=== PATIENT | female | born 1955 | race Caucasian/White ===

== ENCOUNTER 2016-04-24 21:06 | Emergency (ER) | payer SELFPAY ==
--- NOTE | 2016-04-24 21:08 | ED Physician Chart ---
Chief Complaint/HPI - Patient Information Date Seen:: 04/24/16 Time Seen:: 21:07 ED Septic Shock - . Is Septic Shock (SBP<90, OR Lactate>4 mmol\L) present?: No Reassessment (Disposition) - Reassessment Reassessment:: This patient checked and then almost immediately left the hospital. I immediately was walking toward the admitting area and by the time I got there the patient had already left. - Patient Disposition Discharge/Transfer:: left without being seen Time:: 21:19 ED Discharge Plan - Patient Disposition Admit/Discharge/Transfer: PT DISCHARGED HOME
== END 2016-04-24 21:15 | disposition left against medical advice (07) ==
LOC: ER 21:06
DX: Z53.21 Procedure and treatment not carried out due to patient leaving prior to being seen by health care provider (principal)

== ENCOUNTER 2017-12-28 07:33 | Inpatient (IN) | payer MEDICAID ==
[2017-12-28] MEDS ORDERED: Sodium Chloride 0.9% 1,000 ML IV ONE (07:46)
[2017-12-28] MEDS ORDERED: Multivitamin Inj 10 ML, Thiamine HCL 100 MG, Magnesium Sulfate 2 GM, Folic Acid 1 MG in... IV ONE (07:50)
[2017-12-28 08:13] LABS: % BASOPHILS 0.9 % (0.0-2.0); % EOSINOPHILS 0.4 % (0.0-5.0); % LYMPHOCYTES 18.4 % (20.0-50.0); % MONOCYTES 11.5 % (2.0-10.0); % NEUTROPHILS 68.8 % (40.0-80.0); BASOPHILE ABSOLUTE 0.1 Th/cumm (0-0.2); HEMATOCRIT 35.8 % (41.0-60); HEMOGLOBIN 12.6 gm/dL (12-16); LYMPHOCYTE ABSOLUTE 1.2 Th/cmm (1.5-3.0); MEAN CELL VOLUME 97.8 fl (81-100); MEAN CORPUSCULAR HEMOGLOBIN 34.4 pg (27.0-31.0); MEAN CORPUSCULAR HGB CONC 35.2 pg (28.0-36.0); MEAN PLATELET VOLUME 6.9 fl; MONOCYTE ABSOLUTE 0.7 Th/cmm (0.3-1.0); NEUTROPHILE ABSOLUTE 4.3 Th/cmm (1.8-8.0); PLATELET COUNT 296 Th/cmm (150-400); RED BLOOD COUNT 3.66 Mil/cmm (3.80-5.10); RED CELL DISTRIBUTION WIDTH 15.1 % (11.5-20.0); WHITE BLOOD COUNT 6.3 Th/cmm (4.8-10.8)
[2017-12-28 08:19] LABS: URINE SOURCE RANDOM
[2017-12-28 08:26] LABS: URINE BILIRUBIN NEGATIVE (NEGATIVE); URINE BLOOD NEGATIVE (NEGATIVE); URINE GLUCOSE (UA) NEGATIVE (NEGATIVE); URINE KETONE 15 mg/dL (NEGATIVE); URINE LEUKOCYTE ESTERASE NEGATIVE (NEGATIVE); URINE NITRATE NEGATIVE (NEGATIVE); URINE PROTEIN NEGATIVE (NEGATIVE); URINE UROBILINOGEN 0.2 E.U./dL (0.2 - 1.0)
[2017-12-28 08:37] LABS: ACETAMINOPHEN < 10.0 ug/mL (10.0-30.0); ALB/GLOB RATIO 2.1 (1.0-1.8); ALBUMIN 4.1 gm/dL (3.7-5.3); ALKALINE PHOSPHATASE 96 U/L (34-104); AMYLASE SERUM 27 U/L (29-103); ANION GAP 14.1 (7.0-16.0); BILIRUBIN,TOTAL 0.4 mg/dL (0.3-1.0); BUN - UREA NITROGEN 14 mg/dL (7-25); CALCIUM SERUM 8.9 mg/dL (8.6-10.3); CARBON DIOXIDE 23.7 mEq/L (21.0-31.0); CHLORIDE 92 mEq/L (98-107); CHOLESTEROL 181 mg/dL (<200); CREATININE - SERUM 0.5 mg/dL (0.6-1.2); CREATININE KINASE 46 U/L (30-223); GFR AFRICAN-AMERICAN > 60.0 ml/min (>90); GFR NON AFRICAN-AMERICAN > 60.0 ml/min; GLUCOSE 196 mg/dL (70-105); HDL -HIGH DENSITY LIPOPROTEIN 81 mg/dL (23-92); LIPASE 26 U/L (11-82); POTASSIUM SERUM 3.8 mEq/L (3.5-5.1); SGOT 53 U/L (13-39); SGPT/ALT 28 U/L (7-52); SODIUM SERUM 126 mEq/L (136-145); TOTAL PROTEIN,SERUM 6.1 gm/dL (6.0-8.3); TRIGLYCERIDES 401 mg/dL (<150)
[2017-12-28 08:40] LABS: URINE COLOR YELLOW
[2017-12-28 08:41] LABS: URINE CLARITY CLEAR (CLEAR); URINE MICROSCOPIC INDICATED? NO
[2017-12-28 08:44] LABS: SALICYLATES (ASPIRIN) < 25.0 mg/L (30.0-100.0)
[2017-12-28 08:45] LABS: DDIMER QUANT 970 ng/mL (100-400)
--- NOTE | 2017-12-28 08:52 | ED Physician Chart ---
ED Chief Complaint/HPI - Patient Information Date Seen:: 12/28/17 Time Seen:: 07:35 Chief Complaint:: Anxiety History of Present Illness:: onset x 12 hours of anxiousness, nervousness, N/V/D x 3; pt's last ETOH beverage was 12 hours [employer]HO[employer]; pt denies LOC, ALOC, AMS, syncope, NS, trauma, H/As, S/T, neck pain, C/P, SOB, Abd. Pain, A/C, fever, chills, bleeding, or urinary s/ s Allergies:: Allergies Allergy/AdvReac Type Severity Reaction Status Date / Time tetracycline Allergy Verified 12/28/17 07:39 Vitals:: Vital Signs - 8 hr 12/28/17 07:34 Temp 97.4 F HR 131 RR 18 BP 167/69 O2 Sat % 98 Historian:: Patient Review:: Nurse's Note Reviewed ED Review of Systems - Review of Systems General/Constitutional: No fever, No chills, No weight loss, No weakness, No diaphoresis, No edema, No loss of appetite Skin: No skin lesions, No rash, No bruising Head: No headache, No light-headedness Eyes: No loss of vision, No pain, No diplopia ENT: No earache, No nasal drainage, No sore throat, No tinnitus Neck: No neck pain, No swelling, No thyromegaly, No stiffness, No mass noted Cardio Vascular: No chest pain, No palpitations, No PND, No orthopnea, No edema Pulmonary: No SOB, No cough, No sputum, No wheezing GI: Nausea, Vomiting, Diarrhea, No pain, No melena, No hematochezia, No constipation, No hematemesis G/U: No dysuria, No frequency, No hematuria, No nacturia Helix Coil Winder: No vaginal discharge, No abnormal vaginal bleed, No contraction Musculoskeletal: No bone or joint pain, No back pain, No muscle pain Endocrine: No polyuria, No polydipsia Psychiatric: No prior psych history, No depression, No anxiety, No suicidal ideation, No homicidal ideation, No auditory hallucination, No visual hallucination Hematopoietic: No bruising, No lymphadenopathy Allergic/Immuno: No urticaria, No angioedema Neurological: No syncope, No focal symptoms, No weakness, No paresthesia, No headache, No seizure, No dizziness, No confusion, No vertigo ED Past Medical History - Past Medical History Obtainable: Yes Past Medical History: HTN Family History: HTN Social History: Non Smoker, Alcohol, No Drug Use, Single Surgical History: None Psychiatricy History: None Medication: Reviewed Family Medical History - Family Member Mother History Unknown: Yes ED Physical Exam - Physical Examination General/Constitutional: Awake, Well-developed, well-nourished, Alert, No distress, GCS 15, Non-toxic appearing, Ambulatory Head: Atraumatic Eyes: Lids, conjuctiva normal, PERRL, EOMI Skin: Nl inspection, No rash, No skin lesions, No ecchymosis, Well hydrated, No lymphadenopathy ENMT: External ears, nose nl, Nasal exam nl, Lips, teeth, gums nl Neck: Nontender, Full ROM w/o pain, No JVD, No nuchal rigidity, No bruit, No mass, No stridor Respiratory: Nl effort/Exclusion, Clear to Auscultation, No Wheeze/Rhonchi/Rales Cardio Vascular: RRR, No murmur, gallop, rubs, NL S1 S2 GI: No tenderness/rebounding/guarding, No organomegaly, No hernia, Normal BS's, Nondistended, No mass/bruits, No McBurney tenderness : No CVA tenderness Extremities: No tenderness or effusion, Full ROM, normal strength in all extremities, No edema, Normal digits & nails Neuro/Psych: Alert/oriented, DTR's symmetric, Normal sensory exam, Normal motor strength, Judgement/insight normal, Mood normal, Normal gait, No focal deficits Misc: Normal back, No paraspinal tenderness ED Labs/Radiology/EKG Results - Lab Results Results: Laboratory Tests 12/28/17 12/28/17 12/28/17 06:00 07:55 07:55 WBC 6.3 RBC 3.66 L Hgb 12.6 Hct 35.8 L MCV 97.8 MCH 34.4 H MCHC Differential 35.2 RDW 15.1 Plt Count 296 MPV 6.9 Neutrophils % 68.8 Lymphocytes % 18.4 L Monocytes % 11.5 H Eosinophils % 0.4 Basophils % 0.9 D-Dimer 970 H Sodium 126 L Potassium 3.8 Chloride 92 L Carbon Dioxide 23.7 Anion Gap 14.1 BUN 14 Creatinine 0.5 L Est GFR ( Amer) > 60.0 Est GFR (Non-Af Amer) > 60.0 BUN/Creatinine Ratio 28.0 Glucose 196 H Calcium 8.9 Total Bilirubin 0.4 AST 53 H ALT 28 Alkaline Phosphatase 96 Creatine Kinase 46 Troponin I B-Natriuretic Peptide Total Protein 6.1 Albumin 4.1 Globulin 2.0 Albumin/Globulin Ratio 2.1 H Triglycerides 401 H Cholesterol 181 LDL Cholesterol Direct 36 L HDL Cholesterol 81 Amylase 27 L Lipase 26 Urine Source Urine Color Urine Clarity Urine pH Ur Specific [place] Urine Protein Urine Glucose (UA) Urine Ketones Urine Blood Urine Nitrate Urine Bilirubin Urine Urobilinogen Ur Leukocyte Esterase Urine Test NEGATIVE Salicylates < 25.0 L Acetaminophen < 10.0 L Ethyl Alcohol 12/28/17 12/28/17 12/28/17 07:55 07:55 07:55 WBC RBC Hgb Hct MCV MCH MCHC Differential RDW Plt Count MPV Neutrophils % Lymphocytes % Monocytes % Eosinophils % Basophils % D-Dimer Sodium Potassium Chloride Carbon Dioxide Anion Gap BUN Creatinine Est GFR ( Amer) Est GFR (Non-Af Amer) BUN/Creatinine Ratio Glucose Calcium Total Bilirubin AST ALT Alkaline Phosphatase Creatine Kinase Troponin I 0.01 B-Natriuretic Peptide 21.4 Total Protein Albumin Globulin Albumin/Globulin Ratio Triglycerides Cholesterol LDL Cholesterol Direct HDL Cholesterol Amylase Lipase Urine Source Urine Color Urine Clarity Urine pH Ur Specific [place] Urine Protein Urine Glucose (UA) Urine Ketones Urine Blood Urine Nitrate Urine Bilirubin Urine Urobilinogen Ur Leukocyte Esterase Urine Test Salicylates Acetaminophen Ethyl Alcohol < 10 12/28/17 08:10 WBC RBC Hgb Hct MCV MCH MCHC Differential RDW Plt Count MPV Neutrophils % Lymphocytes % Monocytes % Eosinophils % Basophils % D-Dimer Sodium Potassium Chloride Carbon Dioxide Anion Gap BUN Creatinine Est GFR ( Amer) Est GFR (Non-Af Amer) BUN/Creatinine Ratio Glucose Calcium Total Bilirubin AST ALT Alkaline Phosphatase Creatine Kinase Troponin I B-Natriuretic Peptide Total Protein Albumin Globulin Albumin/Globulin Ratio Triglycerides Cholesterol LDL Cholesterol Direct HDL Cholesterol Amylase Lipase Urine Source RANDOM Urine Color YELLOW Urine Clarity CLEAR Urine pH 6.0 Ur Specific [place] 1.020 Urine Protein NEGATIVE Urine Glucose (UA) NEGATIVE Urine Ketones 15 H Urine Blood NEGATIVE Urine Nitrate NEGATIVE Urine Bilirubin NEGATIVE Urine Urobilinogen 0.2 Ur Leukocyte Esterase NEGATIVE Urine Test Salicylates Acetaminophen Ethyl Alcohol Comments:: Reviewed - EKG Interpretations EKG Time:: 07:50 Rate & Rhythm: 100; ST Comments:: non-specific st-t changes ED Septic Shock - . Is Septic Shock (SBP<90, OR Lactate>4 mmol\L) present?: No - <6hrs of presentation: Vital Signs: Vital Signs - 8 hr 12/28/17 07:34 Temp 97.4 F HR 131 RR 18 BP 167/69 O2 Sat % 98 ED Reassessment (Disposition) - Reassessment Reassessment Condition:: Improved - Diagnosis Diagnosis:: Dx: N/V/D; AGE; Alcoholism; Anxiety; Hyponatremia; Alcohol Withdrawal; Dehydration; Tachycardia; Anemia - Aftercare/Follow up Instructions Aftercare/Follow-Up Instructions:: Counseled pt regarding lab results/diagnosis & need follow up, Counseled pt & family regarding lab results/diagnosis & need follow up - Patient Disposition Discharge/Transfer:: Acute Care w/in this hosp Accepting Physician:: Dr. William Huang Time Called:: 929 Time Responded:: 09:30 Admitted to:: ICU Spoke to:: Dr. William Huang Admitting Medical Physician:: Dr. William Smith Condition at Disposition:: Stable, Improved
[2017-12-28 09:42] LABS: AMPHETAMINE URINE NEGATIVE (NEGATIVE); BARBITURATES URINE NEGATIVE (NEGATIVE); BENZODIAZEPINES QUAL URINE NEGATIVE (NEGATIVE); CANNABINOID THC POSITIVE (NEGATIVE); COCAINE METABOLITE QUAL URINE NEGATIVE (NEGATIVE); METHADONE URINE NEGATIVE (NEGATIVE); METHAMPHETAMINES QUAL URINE NEGATIVE (NEGATIVE); OPIATES (MORPHINE) QUAL. URINE NEGATIVE (NEGATIVE); PHENCYCLIDINE (PCP) URINE NEGATIVE (NEGATIVE); TRICYCLICS (TCA) QUAL. URINE NEGATIVE (NEGATIVE)
[2017-12-28 10:00] LABS: PROTHROMBIN TIME (TEST) 8.9 SECONDS (9.5-11.5)
[2017-12-28 10:34] LABS: INR < 0.90 (0.5-1.4)
[2017-12-28] MEDS ORDERED: D5-0.9%NS 1,000 ML IV SCH ×2 (11:00→11:09)
[2017-12-28] MEDS: D5-0.9%NS 1,000 ML IV SCH (13:31)
[2017-12-28] MEDS ORDERED: Pneumococcal Vaccine 0.5 mL Vial IM ONE (15:11)
--- NOTE | 2017-12-28 16:35 | Consultation ---
DATE OF CONSULTATION: 12/28/2017 REASON FOR CONSULTATION: Hyponatremia. HISTORY OF PRESENT ILLNESS: This is a 62-year-old female with past medical history of alcohol abuse, who came in because of severe anxiety. A few hours prior to admission, the patient had been drinking binge with tequila. She eventually passed out. She woke up shaking, associated with severe tachycardia and diaphoresis. She was then brought to the Emergency Room. Her pulse was 131 with a BP of 167/69. Urine was positive for cannabinoids. Her sodium level was 126. She had no nausea and vomiting, diarrhea; however, she has poor oral intake due to her alcohol intoxication. PAST MEDICAL HISTORY: 1. Drug abuse (alcohol and cannabinoids). 2. Anxiety/depression. 3. Neuropathy. PAST SURGICAL HISTORY: 1. Status post ablation due to arrhythmia. 2. Status post appendectomy. CURRENT MEDICATIONS: She is currently on atenolol, chlordiazepoxide, multivitamins and diltiazem. ALLERGIES: Allergic to tetracycline. SOCIAL HISTORY: She does not have any history of tobacco use. However, she has a history of alcohol abuse as well as use of cannabinoids. She is currently unemployed. FAMILY HISTORY: Sister had a history of breast cancer. REVIEW OF SYSTEMS: CONSTITUTIONAL: She did complain of some weakness. Appetite had been very poor. No fever or chills. HEENT: No mention of headaches nor dizziness. CARDIORESPIRATORY: No chest pain, palpitations, cough, shortness of breath. However, she was diaphoretic. GASTROINTESTINAL: She has no nausea and vomiting, abdominal pain or cramping, hematemesis, melena, hematochezia nor diarrhea. ENDOCRINE: No history of diabetes, thyroid abnormalities nor dyslipidemia. GENITOURINARY: No history of kidney failure, no dysuria nor hematuria. MUSCULOSKELETAL: Multiple joint arthralgias. NEUROPSYCH: No syncopal episode nor seizure activity. PHYSICAL EXAMINATION: GENERAL: The patient is alert, anxious, cachectic. VITAL SIGNS: Blood pressure is 153/82, pulse 95, temperature 99.7 degrees. SKIN: Poor turgor, warm, no rash nor jaundice appreciated. HEENT: Head, normocephalic, atraumatic. Eyes, extraocular muscles intact. Pupils equal, round, reactive to light and accommodates. Anicteric sclerae. Pale conjunctivae. Nose, midline nasal septum. Mouth; dry mucosa, poor dentition. NECK: Supple, no adenopathy, no thyromegaly, no bruits. Trachea palpated in the midline. CHEST AND CARDIOVASCULAR: Tachycardic, S1 and S2. No rub, murmur nor gallop appreciated. Point of maximal impulse, fifth intercostal space, left midclavicular line. No abdominal or femoral bruits appreciated. LUNGS: Equal expansion. No use of accessory muscles. No supraclavicular retractions. Decreased breath sounds, but clear to auscultation without any wheeze. BREASTS: Symmetrical without any discharge. ABDOMEN: Flat, soft, positive for bowel sounds. No bruits either diastolic or systolic. RECTAL: The patient refused. GENITOURINARY: Normal appearing female genitalia. MUSCULOSKELETAL: No effusions present in her joints with adequate range of motion. EXTREMITIES: No evidence of edema, cyanosis nor clubbing with palpable femoral, popliteal and dorsalis pedis pulses. She is positive for asterixis. NEUROLOGIC: The patient is alert, verbal. Motor is 5/5. Cranial nerves 2-12 intact. Sensory intact. LABORATORY DATA: Labs did reveal a white count of 6.3, hemoglobin 12.6, hematocrit 35.8, platelets 296, polys 68.8%. Sodium 126, potassium 3.8, chloride 92, bicarb 23, BUN 14, creatinine 0.5, glucose 196, calcium 8.9. Urine for ketones 15. IMPRESSION: 1. Hyponatremia secondary to decreased oral intake based on history of alcohol intoxication and the patient was not able to replenish her sodium loss. Exam revealed poor skin turgor with dry oral mucosa and a very concentrated urine. Thus, there is a possibility of increased sodium loss as compared to free water loss. 2. Delirium tremens secondary to acute alcohol withdrawal. 3. Sinus tachycardia secondary to cannabinoids, with also underlying history of arrhythmia. 4. Malnutrition. 5. Anxiety/depression. 6. Neuropathy. 7. Essential hypertension. PLAN: 1. Agree with IV fluids. 2. Beta blockers. 3. Banana bag. 4. Urine sodium. 5. Follow up electrolytes, serum osmolarity, lactic acid and TSH. Thank you, Dr. Huang, for this consult. We will follow the patient closely with you. JOB# [id number]
[2017-12-28] MEDS: Multivitamin Inj 10 ML, Thiamine HCL 100 MG, Magnesium Sulfate 2 GM, Folic Acid 1 MG in... IV SCH (16:52)
--- NOTE | 2017-12-28 16:59 | History & Physical ---
ADMIT DATE: 12/28/2017 CHIEF COMPLAINT: Anxiety, nervousness, nausea, vomiting and diarrhea for last 3-4 days. HISTORY OF PRESENT ILLNESS: Recently, the patient went with the similar symptoms at [facility] on 12/23/2017. Same night, she was discharged to home. Although she has some tachycardia. She was discharged home. At the time of admission, she was found to have alcohol intoxication. Now, she presented with anxiety, nervousness, nausea, vomiting, diarrhea for last one day. She stated that she took her alcohol 12 hours prior to the presentation to the ER. The patient denies any loss of consciousness. The patient denies any fever; however, the patient was found to have tachycardia and high blood pressure. She denied any diagnosis of hypertension before. The patient was suspected to have delirium tremens as the patient's alcohol level less than 10, had some few symptoms of above said diagnoses. The patient was admitted to the ICU, started on IV fluid. ALLERGIES: NKDA. PAST MEDICAL HISTORY: Denies any significant past medical history beside alcohol abuse. FAMILY HISTORY: Hypertension. SOCIAL HISTORY: The patient denies any smoking or drug use. The patient is single and has history of alcohol abuse. PAST SURGICAL HISTORY: None. PSYCHIATRIC HISTORY: The patient has anxiety disorder and taking some medications for that. MEDICATIONS: As per medication reconciliation sheet. REVIEW OF SYSTEMS: CONSTITUTIONAL: The patient denies any fever or chills. The patient denies any diaphoresis. The patient denies any loss of appetite. The patient complains of generalized weakness. HEAD, EYES, EARS, NOSE, AND THROAT: The patient denies any headache, ear pain, eye discharge or sore throat or congestion. RESPIRATORY: The patient denies any cough or shortness of breath. CVS: The patient denies any chest pain or palpitation. No leg swelling. GASTROINTESTINAL: The patient denies any complains of nausea, vomiting and diarrhea for last one day. The patient denies any abdominal pain. GENITOURINARY: The patient denies any dysuria or frequency or hematuria. GYNECOLOGIC: The patient denies any vaginal discharge ____ vaginal bleed. MUSCULOSKELETAL: The patient denies any abnormal joint pain or swelling. PSYCHIATRIC: The patient has anxiety and tremors. She stated that when she takes alcohol she does not get any tremors, but off alcohol she get tremor. HEMATOPOIETIC: Denies any lymphadenopathy, easy bruising or bleeding tendency. NEUROLOGIC: The patient denies headache, dizziness or focal weakness or seizures. PHYSICAL EXAMINATION: VITAL SIGNS: Shows temperature is 97.6 degrees Fahrenheit, pulse is 103, and respiration is 15, blood pressure 164/93 and oxygen 95%. GENERAL: The patient is comfortable, lying in the bed. LUNGS: Cachectic, not in acute distress. HEAD, EYES, EARS, NOSE, AND THROAT: Head is normocephalic, atraumatic. Oral cavity moist, pink tongue. Eyes: No pallor, no icterus. PERRLA, EOMI. NECK: Supple, no JVD, no carotid bruit. Trachea midline. CHEST: Bilateral vesicular sounds, no crackles or wheezing. CARDIOVASCULAR: S1, S2 within normal limits. Regular rhythm. No murmur, no gallop. ABDOMEN: Soft, nontender, nondistended. Bowel sounds present. EXTREMITIES: No cyanosis, no clubbing, no edema. LABORATORY DATA: Urinalysis shows negative protein and glucose, nitrite negative. Ketone was 15. Urine tox screen was positive for cannabinoids. Ethyl alcohol level less than 10. Urine methadone is negative. D-dimer is 970. PT is 8.9 and INR is less than 0.90. Sodium is 126, potassium 3.8, chloride 92, bicarbonate is 24, BUN is 14, creatinine 0.5, glucose is 196, AST 53, ALT 28, alkaline phosphatase is 96, total bilirubin 0.4 and triglycerides 401, LDL 36, HDL 81, amylase 27. Cholesterol is 181. BNP is 21.4. Troponin 0.01. IMPRESSION: 1. Nausea, vomiting, diarrhea, maybe symptoms of gastroenteritis versus may have alcohol withdrawal. Delirium tremens. 2. Suspect delirium tremens. 3. Hypertension, which seems new. 4. Tachycardia. 5. Anxiety disorder. 6. Hyponatremia. RECOMMENDATION AND PLAN: We will continue IV fluids over the D5 normal saline with a banana bag, thiamine 100 mg IV ordered, Librium 25 mg p.o. every 8 hourly. PLAN: Continue IV fluids over the D5 normal saline with a banana bag, thiamine 100 mg given in the ER, multivitamin and the banana bag, Librium 25 mg p.o. 4 times a day. Depending on the response, will take further decision. Meanwhile, the patient was already started on atenolol. Continue her home medication. Monitor the patient in ICU for 24 hours. If she does well, will transfer the patient back to the telemetry. Depending on the patient's clinical status tomorrow. This history and physical was done on behalf of Dr. Swanson who requested to take care of the patient in the hospital. Consultants called Dr. Jose Huang for tachycardia and hypertension, and Dr. Burns for hyponatremia. JOB# [id number] MTDD
[2017-12-28 17:03] VITALS: BP 168/93
[2017-12-28] MEDS: Diltiazem 30 mg Tab PO SCH (17:41)
[2017-12-28] MEDS ORDERED: Multivitamin Inj 10 ML, Thiamine HCL 100 MG, Magnesium Sulfate 2 GM, Folic Acid 1 MG in... IV SCH ×2 (21:00)
[2017-12-29] MEDS: Diltiazem 30 mg Tab PO SCH ×4 (00:06→17:26)
[2017-12-29 04:50] LABS: % BASOPHILS 0.4 % (0.0-2.0); % EOSINOPHILS 0.5 % (0.0-5.0); % MONOCYTES 13.1 % (2.0-10.0); HEMOGLOBIN 14.2 gm/dL (12-16); LYMPHOCYTE ABSOLUTE 2.1 Th/cmm (1.5-3.0); MEAN CELL VOLUME 98.3 fl (81-100); MEAN CORPUSCULAR HEMOGLOBIN 33.3 pg (27.0-31.0); MEAN CORPUSCULAR HGB CONC 33.9 pg (28.0-36.0); MEAN PLATELET VOLUME 6.8 fl; NEUTROPHILE ABSOLUTE 4.4 Th/cmm (1.8-8.0); PLATELET COUNT 292 Th/cmm (150-400); RED BLOOD COUNT 4.25 Mil/cmm (3.80-5.10); RED CELL DISTRIBUTION WIDTH 14.8 % (11.5-20.0); WHITE BLOOD COUNT 7.5 Th/cmm (4.8-10.8)
[2017-12-29 05:22] LABS: HEMATOCRIT 41.8 % (41.0-60)
[2017-12-29 05:42] LABS: ANION GAP 11.8 (7.0-16.0); BUN - UREA NITROGEN 11 mg/dL (7-25); CALCIUM SERUM 9.1 mg/dL (8.6-10.3); CARBON DIOXIDE 24.9 mEq/L (21.0-31.0); CHLORIDE 104 mEq/L (98-107); CREATININE - SERUM 0.6 mg/dL (0.6-1.2); GFR AFRICAN-AMERICAN > 60.0 ml/min (>90); GFR NON AFRICAN-AMERICAN > 60.0 ml/min; GLUCOSE 133 mg/dL (70-105); MAGNESIUM 2.7 mg/dL (1.9-2.7); PHOSPHOROUS 3.4 mg/dL (2.5-5.0); POTASSIUM SERUM 3.7 mEq/L (3.5-5.1); SODIUM SERUM 137 mEq/L (136-145); URIC ACID 4.4 mg/dL (2.3-6.6)
--- NOTE | 2017-12-29 12:52 | Consultation ---
DATE OF CONSULTATION: 12/29/2017 IDENTIFYING INFORMATION: The patient is a 62-year-old female. HISTORY OF PRESENT ILLNESS: The patient was admitted to ICU because she was in delirium tremens. She was detoxing from alcohol. Blood alcohol level was high. She was intoxicated when she was admitted here to ICU. The patient is currently alert. She knows she is in the hospital. She admits to feeling depressed. She started crying when talked about her who left her some 8 years ago for another woman. She reports that she has been depressed since age 50 when she started having menopausal symptoms, has been on Celexa since seen by her medical doctor. She reports that she started using alcohol to numb her feelings 7 years ago. She also uses marijuana and she wanted to get off all of the medications. She is also on Neurontin by her primary care physician. The patient report no additional visual hallucinations. No paranoia. Denies any intent to harm herself or anybody. She wants to go to the [facility] when she is stable, so she can do residential treatment. PAST PSYCHIATRIC HISTORY: Depression, starting at age 50 after menopause. No prior suicide attempt. She has been treated for alcohol addiction twice. She was treated 3 times before. Denies having any manic symptoms. MEDICAL HISTORY: Deferred to the medical doctor. MEDICATOINS: She is on Celexa, Neurontin. FAMILY AND SOCIAL HISTORY: The patient was for 8 years, was to 27 years. She has 1 girl 25 years of age. She use alcohol, marijuana as described before. Father was addicted to prescription medication. No family history of suicide. She is currently not working. MENTAL STATUS EXAMINATION: The patient is appropriately dressed, not very well groomed. She was alert, oriented to place, person, but not to time. She is not sure of the date, but she knew who is President of [facility]. Her long-term is good for age, date of . Recent memory was events after coming here, what she ate breakfast. Her insight about her illness is fair. Judgment ____. DIAGNOSTIC IMPRESSION: AXIS I: Chronic alcohol dependence, major depression, recurrent, severe with no psychosis. MEDICAL DIAGNOSES: As per medical doctor recommend to continue medications. The patient may need to on naltrexone or Campral when she is detox. The patient will be going to residential treatment; however, her symptoms of depression remaining, we may have to adjust her medication. Thank you very much for allowing me to participate in the care of this most interesting lady. JOB# [id number]
--- NOTE | 2017-12-29 13:29 | Cardiology ---
12/28/[address] William Huang. M-MODE ECHOCARDIOGRAM: Mitral valve, anterior leaflet of mitral valve shows normal excursion, EF velocity. Posterior leaflet of the mitral valve shows normal excursion. Left ventricular posterior wall shows normal thickness, excursion. Interventricular septum showed normal thickness, excursion. Ejection fraction 62%. Left atrium normal. Aortic root shows normal dimension, normal excursion of aortic leaflets. CONCLUSION: Normal M-Mode echo, ejection fraction 62%. 2D ECHO: Long axis view showed normal sized left ventricle with normal wall motion, mitral valve shows normal excursion. Left atrium normal. Aortic root showed normal dimension, normal excursion of aortic leaflets. Short axis view of mitral valve normal. Short axis view of aortic valve normal. Apical four chamber view showed normal sized left ventricle, left atrium, right ventricle, right atrium, tricuspid and mitral valve. Ejection fraction 62%. CONCLUSION: Normal 2D echo, ejection fraction 62%. Doppler study shows mild mitral regurgitation, mild tricuspid regurgitation, right ventricular systolic pressure 38 mmHg. [facility]# [id number]
--- NOTE | 2017-12-29 14:16 | General Progress Note ---
Subjective - Review of Systems Service Date: 12/29/17 Subjective: alert, feels better, less anxious, no tremors Objective - Results Result Diagrams: 12/29/17 04:45 12/29/17 04:45 Recent Labs: Laboratory Last Values WBC 7.5 Th/cmm (4.8-10.8) 12/29/17 04:45 RBC 4.25 Mil/cmm (3.80-5.10) 12/29/17 04:45 Hgb 14.2 gm/dL (12-16) 12/29/17 04:45 Hct 41.8 % (41.0-60) D 12/29/17 04:45 MCV 98.3 fl (81-100) 12/29/17 04:45 MCH 33.3 pg (27.0-31.0) H 12/29/17 04:45 MCHC Differential 33.9 pg (28.0-36.0) 12/29/17 04:45 RDW 14.8 % (11.5-20.0) 12/29/17 04:45 Plt Count 292 Th/cmm (150-400) 12/29/17 04:45 MPV 6.8 fl 12/29/17 04:45 Neutrophils % 58.0 % (40.0-80.0) 12/29/17 04:45 Lymphocytes % 28.0 % (20.0-50.0) 12/29/17 04:45 Monocytes % 13.1 % (2.0-10.0) H 12/29/17 04:45 Eosinophils % 0.5 % (0.0-5.0) 12/29/17 04:45 Basophils % 0.4 % (0.0-2.0) 12/29/17 04:45 PT 8.9 SECONDS (9.5-11.5) L 12/28/17 09:35 INR < 0.90 (0.5-1.4) 12/28/17 09:35 D-Dimer 970 ng/mL (100-400) H 12/28/17 07:55 Sodium 137 mEq/L (136-145) 12/29/17 04:45 Potassium 3.7 mEq/L (3.5-5.1) 12/29/17 04:45 Chloride 104 mEq/L (98-107) 12/29/17 04:45 Carbon Dioxide 24.9 mEq/L (21.0-31.0) 12/29/17 04:45 Anion Gap 11.8 (7.0-16.0) 12/29/17 04:45 BUN 11 mg/dL (7-25) 12/29/17 04:45 Creatinine 0.6 mg/dL (0.6-1.2) 12/29/17 04:45 Est GFR ( Amer) > 60.0 ml/min (>90) 12/29/17 04:45 Est GFR (Non-Af Amer) > 60.0 ml/min 12/29/17 04:45 BUN/Creatinine Ratio 18.3 12/29/17 04:45 Glucose 133 mg/dL (70-105) H 12/29/17 04:45 Uric Acid 4.4 mg/dL (2.3-6.6) 12/29/17 04:45 Calcium 9.1 mg/dL (8.6-10.3) 12/29/17 04:45 Phosphorus 3.4 mg/dL (2.5-5.0) 12/29/17 04:45 Magnesium 2.7 mg/dL (1.9-2.7) 12/29/17 04:45 Total Bilirubin 0.4 mg/dL (0.3-1.0) 12/28/17 07:55 AST 53 U/L (13-39) H 12/28/17 07:55 ALT 28 U/L (7-52) 12/28/17 07:55 Alkaline Phosphatase 96 U/L (34-104) 12/28/17 07:55 Creatine Kinase 46 U/L (30-223) 12/28/17 07:55 Troponin I 0.01 ng/mL (0.01-0.05) 12/28/17 07:55 B-Natriuretic Peptide 21.4 pg/mL (5.0-100.0) 12/28/17 07:55 Total Protein 6.1 gm/dL (6.0-8.3) 12/28/17 07:55 Albumin 4.1 gm/dL (3.7-5.3) 12/28/17 07:55 Globulin 2.0 gm/dL 12/28/17 07:55 Albumin/Globulin Ratio 2.1 (1.0-1.8) H 12/28/17 07:55 Triglycerides 401 mg/dL (<150) H 12/28/17 07:55 Cholesterol 181 mg/dL (<200) 12/28/17 07:55 LDL Cholesterol Direct 36 mg/dL (75-193) L 12/28/17 07:55 HDL Cholesterol 81 mg/dL (23-92) 12/28/17 07:55 Amylase 27 U/L (29-103) L 12/28/17 07:55 Lipase 26 U/L (11-82) 12/28/17 07:55 TSH 2.68 uIU/ml (0.34-5.60) 12/29/17 04:45 Urine Source RANDOM 12/28/17 08:10 Urine Color YELLOW 12/28/17 08:10 Urine Clarity CLEAR (CLEAR) 12/28/17 08:10 Urine pH 6.0 (4.6 - 8.0) 12/28/17 08:10 Ur Specific [place] 1.020 (1.005-1.030) 12/28/17 08:10 Urine Protein NEGATIVE mg/dL (NEGATIVE) 12/28/17 08:10 Urine Glucose (UA) NEGATIVE mg/dL (NEGATIVE) 12/28/17 08:10 Urine Ketones 15 mg/dL (NEGATIVE) H 12/28/17 08:10 Urine Blood NEGATIVE (NEGATIVE) 12/28/17 08:10 Urine Nitrate NEGATIVE (NEGATIVE) 12/28/17 08:10 Urine Bilirubin NEGATIVE (NEGATIVE) 12/28/17 08:10 Urine Urobilinogen 0.2 E.U./dL (0.2 - 1.0) 12/28/17 08:10 Ur Leukocyte Esterase NEGATIVE (NEGATIVE) 12/28/17 08:10 Urine Test NEGATIVE 12/28/17 06:00 Salicylates < 25.0 mg/L (30.0-100.0) L 12/28/17 07:55 Urine Opiates Screen NEGATIVE (NEGATIVE) 12/28/17 06:00 Urine Methadone Screen NEGATIVE (NEGATIVE) 12/28/17 06:00 Acetaminophen < 10.0 ug/mL (10.0-30.0) L 12/28/17 07:55 Ur Barbiturates Screen NEGATIVE (NEGATIVE) 12/28/17 06:00 Ur Tricyclics Screen NEGATIVE (NEGATIVE) 12/28/17 06:00 Ur Phencyclidine Scrn NEGATIVE (NEGATIVE) 12/28/17 06:00 Amphetamines Screen NEGATIVE (NEGATIVE) 12/28/17 06:00 U Methamphetamines Scrn NEGATIVE (NEGATIVE) 12/28/17 06:00 U Benzodiazepines Scrn NEGATIVE (NEGATIVE) 12/28/17 06:00 U Cocaine Metab Screen NEGATIVE (NEGATIVE) 12/28/17 06:00 U Cannabinoids Screen POSITIVE (NEGATIVE) H 12/28/17 06:00 Ethyl Alcohol < 10 mg/dL (0-10) 12/28/17 07:55 - Physical Exam Vitals and I&O: Vital Signs Temp 98.3 F 12/29/17 11:00 Pulse 78 12/29/17 11:42 Resp 21 12/29/17 11:00 BP 123/76 12/29/17 11:00 Pulse Ox 97 12/29/17 11:00 Intake & Output 12/28/17 12/29/17 12/29/17 18:59 06:59 18:59 Intake Total 868 1115.2 Output Total 1800 1400 Balance -932 -284.8 Weight (lbs) 40.823 kg 37.24 kg Intake: Intake, IV Amount 268 1015.2 D5-0.9%Ns 1,000 ml @ 80 268 0 mls/hr IV .[id number] ON LICENSE OF [facility] Rx #:[id number] Multivitamin Inj 10 ml 1015.2 Thiamine HCL 100 mg Magnesium Sulfate 2 gm Folic Acid 1 mg In Sodium Chloride 0.9% 1,000 ml @ 80 mls/hr IV Q24H ON LICENSE OF [facility] Rx #:[id number] Oral 600 100 Output: Urine 1800 1400 Other: # Voids 4 Stool Characteristics Soft Formed Brown Weight Source Bedscale Bedscale Active Medications: Current Medications Atenolol (Tenormin) 25 mg PO DAILY ON LICENSE OF [facility] Stop: 02/27/18 08:59 Last Admin: 12/29/17 08:23 Dose: 25 mg Chlordiazepoxide (Librium) 25 mg PO TID ON LICENSE OF [facility]; Protocol Stop: 02/26/18 15:52 Last Admin: 12/29/17 13:22 Dose: 25 mg Citalopram Hydrobromide (Celexa) 20 mg PO DAILY ON LICENSE OF [facility]; Protocol Stop: 02/27/18 11:59 Last Admin: 12/29/17 11:41 Dose: 20 mg Diltiazem HCl (Cardizem) 60 mg PO Q6HR ON LICENSE OF [facility] Stop: 02/26/18 17:59 Last Admin: 12/29/17 11:42 Dose: Not Given Gabapentin (Neurontin) 300 mg PO DAILY ON LICENSE OF [facility] Stop: 02/27/18 08:59 Last Admin: 12/29/17 08:23 Dose: 300 mg Multivitamins/Minerals 10 ml/Thiamine HCl 100 mg/ Magnesium Sulfate 2 gm/ Folic Acid 1 mg / Sodium Chloride 1,015.2 mls @ 80 mls/hr IV Q24H [facility] Stop: 02/26/18 15:59 Last Infusion: 12/29/17 05:30 Dose: Infused Dextrose/Sodium Chloride (D5-0.9%Ns) 1,000 mls @ 80 mls/hr IV .[id number] ON LICENSE OF [facility] Stop: 02/26/18 10:59 Last Infusion: 12/29/17 05:52 Dose: 80 mls/hr Temazepam (Restoril) 15 mg PO HS PRN; Protocol PRN Reason: Insomnia Stop: 02/26/18 15:05 Last Admin: 12/28/17 21:33 Dose: 15 mg General: Alert, Oriented x3, No acute distress HEENT: Atraumatic, PERRLA, Mucous membr. moist/pink Neck: Supple, +2 carotid pulse wo bruit Cardiovascular: Regular rate, Normal S1, Normal S2 Abdomen: Bowel sounds, Soft Extremities: no Edema Neurological: Sensation intact Skin: no Rash Psych/Mental Status: Mood NL Assessment/Plan - Assessment Assessment: Hyponatremia DT'S Tachy resolved Malnutrition Anxiety/Depression Neuropathy Ess Htn Drug abuse ( alcohol/Cannabinoids) - Plan Plan: Lab - Result Diagrams 12/29/17 04:45 12/29/17 04:45 Current Medications Atenolol (Tenormin) 25 mg PO DAILY ON LICENSE OF [facility] Stop: 02/27/18 08:59 Last Admin: 12/29/17 08:23 Dose: 25 mg Chlordiazepoxide (Librium) 25 mg PO TID ON LICENSE OF [facility]; Protocol Stop: 02/26/18 15:52 Last Admin: 12/29/17 13:22 Dose: 25 mg Citalopram Hydrobromide (Celexa) 20 mg PO DAILY ON LICENSE OF [facility]; Protocol Stop: 02/27/18 11:59 Last Admin: 12/29/17 11:41 Dose: 20 mg Diltiazem HCl (Cardizem) 60 mg PO Q6HR ON LICENSE OF [facility] Stop: 02/26/18 17:59 Last Admin: 12/29/17 11:42 Dose: Not Given Gabapentin (Neurontin) 300 mg PO DAILY ON LICENSE OF [facility] Stop: 02/27/18 08:59 Last Admin: 12/29/17 08:23 Dose: 300 mg Multivitamins/Minerals 10 ml/Thiamine HCl 100 mg/ Magnesium Sulfate 2 gm/ Folic Acid 1 mg / Sodium Chloride 1,015.2 mls @ 80 mls/hr IV Q24H ON LICENSE OF [facility] Stop: 02/26/18 15:59 Last Infusion: 12/29/17 05:30 Dose: Infused Dextrose/Sodium Chloride (D5-0.9%Ns) 1,000 mls @ 80 mls/hr IV .[id number] ON LICENSE OF [facility] Stop: 02/26/18 10:59 Last Infusion: 12/29/17 05:52 Dose: 80 mls/hr Temazepam (Restoril) 15 mg PO HS PRN; Protocol PRN Reason: Insomnia Stop: 02/26/18 15:05 Last Admin: 12/28/17 21:33 Dose: 15 mg Lab - Result Diagrams 12/29/17 04:45 12/29/17 04:45 Na up to 137 continue IVF monitor electrolytes no more tremors
[2017-12-29] MEDS: Multivitamin Inj 10 ML, Thiamine HCL 100 MG, Magnesium Sulfate 2 GM, Folic Acid 1 MG in... IV SCH (16:45)
--- NOTE | 2017-12-29 23:44 | Infectious Disease Prog Note ---
Infectious Disease Subjective - Review of Systems Service Date: 12/29/17 Subjective: Doing better, no tachycardia, no nausea. Infectious Disease Objective - Results Result Diagrams: 12/29/17 04:45 12/29/17 04:45 Recent Labs: Laboratory Last Values WBC 7.5 Th/cmm (4.8-10.8) 12/29/17 04:45 RBC 4.25 Mil/cmm (3.80-5.10) 12/29/17 04:45 Hgb 14.2 gm/dL (12-16) 12/29/17 04:45 Hct 41.8 % (41.0-60) D 12/29/17 04:45 MCV 98.3 fl (81-100) 12/29/17 04:45 MCH 33.3 pg (27.0-31.0) H 12/29/17 04:45 MCHC Differential 33.9 pg (28.0-36.0) 12/29/17 04:45 RDW 14.8 % (11.5-20.0) 12/29/17 04:45 Plt Count 292 Th/cmm (150-400) 12/29/17 04:45 MPV 6.8 fl 12/29/17 04:45 Neutrophils % 58.0 % (40.0-80.0) 12/29/17 04:45 Lymphocytes % 28.0 % (20.0-50.0) 12/29/17 04:45 Monocytes % 13.1 % (2.0-10.0) H 12/29/17 04:45 Eosinophils % 0.5 % (0.0-5.0) 12/29/17 04:45 Basophils % 0.4 % (0.0-2.0) 12/29/17 04:45 PT 8.9 SECONDS (9.5-11.5) L 12/28/17 09:35 INR < 0.90 (0.5-1.4) 12/28/17 09:35 D-Dimer 970 ng/mL (100-400) H 12/28/17 07:55 Sodium 137 mEq/L (136-145) 12/29/17 04:45 Potassium 3.7 mEq/L (3.5-5.1) 12/29/17 04:45 Chloride 104 mEq/L (98-107) 12/29/17 04:45 Carbon Dioxide 24.9 mEq/L (21.0-31.0) 12/29/17 04:45 Anion Gap 11.8 (7.0-16.0) 12/29/17 04:45 BUN 11 mg/dL (7-25) 12/29/17 04:45 Creatinine 0.6 mg/dL (0.6-1.2) 12/29/17 04:45 Est GFR ( Amer) > 60.0 ml/min (>90) 12/29/17 04:45 Est GFR (Non-Af Amer) > 60.0 ml/min 12/29/17 04:45 BUN/Creatinine Ratio 18.3 12/29/17 04:45 Glucose 133 mg/dL (70-105) H 12/29/17 04:45 Uric Acid 4.4 mg/dL (2.3-6.6) 12/29/17 04:45 Calcium 9.1 mg/dL (8.6-10.3) 12/29/17 04:45 Phosphorus 3.4 mg/dL (2.5-5.0) 12/29/17 04:45 Magnesium 2.7 mg/dL (1.9-2.7) 12/29/17 04:45 Total Bilirubin 0.4 mg/dL (0.3-1.0) 12/28/17 07:55 AST 53 U/L (13-39) H 12/28/17 07:55 ALT 28 U/L (7-52) 12/28/17 07:55 Alkaline Phosphatase 96 U/L (34-104) 12/28/17 07:55 Creatine Kinase 46 U/L (30-223) 12/28/17 07:55 Troponin I 0.01 ng/mL (0.01-0.05) 12/28/17 07:55 B-Natriuretic Peptide 21.4 pg/mL (5.0-100.0) 12/28/17 07:55 Total Protein 6.1 gm/dL (6.0-8.3) 12/28/17 07:55 Albumin 4.1 gm/dL (3.7-5.3) 12/28/17 07:55 Globulin 2.0 gm/dL 12/28/17 07:55 Albumin/Globulin Ratio 2.1 (1.0-1.8) H 12/28/17 07:55 Triglycerides 401 mg/dL (<150) H 12/28/17 07:55 Cholesterol 181 mg/dL (<200) 12/28/17 07:55 LDL Cholesterol Direct 36 mg/dL (75-193) L 12/28/17 07:55 HDL Cholesterol 81 mg/dL (23-92) 12/28/17 07:55 Amylase 27 U/L (29-103) L 12/28/17 07:55 Lipase 26 U/L (11-82) 12/28/17 07:55 TSH 2.68 uIU/ml (0.34-5.60) 12/29/17 04:45 Urine Source RANDOM 12/28/17 08:10 Urine Color YELLOW 12/28/17 08:10 Urine Clarity CLEAR (CLEAR) 12/28/17 08:10 Urine pH 6.0 (4.6 - 8.0) 12/28/17 08:10 Ur Specific [place] 1.020 (1.005-1.030) 12/28/17 08:10 Urine Protein NEGATIVE mg/dL (NEGATIVE) 12/28/17 08:10 Urine Glucose (UA) NEGATIVE mg/dL (NEGATIVE) 12/28/17 08:10 Urine Ketones 15 mg/dL (NEGATIVE) H 12/28/17 08:10 Urine Blood NEGATIVE (NEGATIVE) 12/28/17 08:10 Urine Nitrate NEGATIVE (NEGATIVE) 12/28/17 08:10 Urine Bilirubin NEGATIVE (NEGATIVE) 12/28/17 08:10 Urine Urobilinogen 0.2 E.U./dL (0.2 - 1.0) 12/28/17 08:10 Ur Leukocyte Esterase NEGATIVE (NEGATIVE) 12/28/17 08:10 Urine Test NEGATIVE 12/28/17 06:00 Salicylates < 25.0 mg/L (30.0-100.0) L 12/28/17 07:55 Urine Opiates Screen NEGATIVE (NEGATIVE) 12/28/17 06:00 Urine Methadone Screen NEGATIVE (NEGATIVE) 12/28/17 06:00 Acetaminophen < 10.0 ug/mL (10.0-30.0) L 12/28/17 07:55 Ur Barbiturates Screen NEGATIVE (NEGATIVE) 12/28/17 06:00 Ur Tricyclics Screen NEGATIVE (NEGATIVE) 12/28/17 06:00 Ur Phencyclidine Scrn NEGATIVE (NEGATIVE) 12/28/17 06:00 Amphetamines Screen NEGATIVE (NEGATIVE) 12/28/17 06:00 U Methamphetamines Scrn NEGATIVE (NEGATIVE) 12/28/17 06:00 U Benzodiazepines Scrn NEGATIVE (NEGATIVE) 12/28/17 06:00 U Cocaine Metab Screen NEGATIVE (NEGATIVE) 12/28/17 06:00 U Cannabinoids Screen POSITIVE (NEGATIVE) H 12/28/17 06:00 Ethyl Alcohol < 10 mg/dL (0-10) 12/28/17 07:55 - Physical Exam Vitals and I&O: Vital Signs Temp 97.6 F 12/29/17 21:00 Pulse 71 12/29/17 23:00 Resp 18 12/29/17 23:00 BP 119/72 12/29/17 23:00 Pulse Ox 96 12/29/17 23:00 Intake & Output 12/29/17 12/29/17 12/30/17 06:59 18:59 06:59 Intake Total 1115.2 1850 Output Total 1400 Balance -284.8 1850 Weight (lbs) 37.24 kg 40.115 kg Intake: Intake, IV Amount 1015.2 D5-0.9%Ns 1,000 ml @ 80 0 mls/hr IV .[id number] [facility] Rx #:[id number] Multivitamin Inj 10 ml 1015.2 Thiamine HCL 100 mg Magnesium Sulfate 2 gm Folic Acid 1 mg In Sodium Chloride 0.9% 1,000 ml @ 80 mls/hr IV Q24H [facility] Rx #:[id number] Oral 100 1850 Output: Urine 1400 Other: # Voids 4 6 # Bowel Movements 1 Stool Characteristics Soft Formed Brown Weight Source Bedscale Bedscale Active Medications: Current Medications Atenolol (Tenormin) 25 mg PO DAILY [facility] Stop: 02/27/18 08:59 Last Admin: 12/29/17 08:23 Dose: 25 mg Chlordiazepoxide (Librium) 25 mg PO TID [facility]; Protocol Stop: 02/26/18 15:52 Last Admin: 12/29/17 20:31 Dose: 25 mg Citalopram Hydrobromide (Celexa) 20 mg PO DAILY [facility]; Protocol Stop: 02/27/18 11:59 Last Admin: 12/29/17 11:41 Dose: 20 mg Diltiazem HCl (Cardizem) 60 mg PO Q6HR [facility] Stop: 02/26/18 17:59 Last Admin: 12/29/17 17:26 Dose: Not Given Gabapentin (Neurontin) 300 mg PO DAILY [facility] Stop: 02/27/18 08:59 Last Admin: 12/29/17 08:23 Dose: 300 mg Multivitamins/Minerals 10 ml/Thiamine HCl 100 mg/ Magnesium Sulfate 2 gm/ Folic Acid 1 mg / Sodium Chloride 1,015.2 mls @ 80 mls/hr IV Q24H [facility] Stop: 02/26/18 15:59 Last Admin: 12/29/17 16:45 Dose: 80 mls/hr Dextrose/Sodium Chloride (D5-0.9%Ns) 1,000 mls @ 80 mls/hr IV .[id number] [facility] Stop: 02/26/18 10:59 Last Infusion: 12/29/17 05:52 Dose: 80 mls/hr Temazepam (Restoril) 15 mg PO HS PRN; Protocol PRN Reason: Insomnia Stop: 02/26/18 15:05 Last Admin: 12/29/17 21:07 Dose: 15 mg General: no acute distress, well developed, well nourished HEENT: atraumatic, normocephalic, PERRLA, EOMI Neck: supple, no thyromegaly Cardiovascular: S1S2, regular Lungs: clear to auscultation bilaterally, clear to percussion Abdomen: soft, no tender, no distended Extremities: no cyanosis, no clubbing, no edema Neurological: awake, alert, oriented Skin: intact Infectious Disease Assmt/Plan - Assessment Assessment: 1. Nausea, vomiting, diarrhea, maybe symptoms of gastroenteritis versus may have alcohol withdrawal. Delirium tremens. Improving. 2. Suspect delirium tremens. 3. Hypertension, which seems new or part of DT. 4. Tachycardia. Improved/ 5. Anxiety disorder. 6. Hyponatremia. improved. - Plan Plan: Transfer to [facility]. Nutritional Asmnt/Malnutr-PDOC - Dietary Evaluation Malnutrition Findings (Please click <Entered> for more info): Nutritional Asmnt/Malnutrition Start: 12/29/17 14: 44 Text: Status: Complete Freq: Protocol: Document 12/29/17 14:44 LCHENG (Rec: 12/29/17 14:58 LCHENG [email or web address]) Nutritional Asmnt/Malnutrition Patient General Information Nutritional Screening High Risk Diagnosis delirium tremens Pertinent Medical Hx/Surgical Hx HTN, alcohol abuse Subjective Information Consult received for BS 196 at admission. pt seen sitting up in bed having lunch at time of visit, alert. Pt stated her appetite has been improved. Per EMR, PO intake 50-75%. Pt likes milk. Pt expressed concern about her weight. Pt was aware of underweight. Current Diet Order/ Nutrition Support low sodium Pertinent Medications D5-0.9%ns, multivitamins/ minerals/thiamine/magnesium/ folic acid Pertinent Labs 12/29 Glucose 133 (trending down) 12/28 Na 126, Cl 92, Cr 0.5, glucose 196 Nutritional Hx/Data Height 1.55 m Height (Calculated Centimeters) 154.9 Current Weight (lbs) 37.195 kg Weight (Calculated Kilograms) 37.2 Weight (Calculated Grams) 44935.6 [place] Body Weight 105 Body Mass Index (BMI) 15.5 Weight Status Underweight GI Symptoms GI Symptoms None Last BM not indicated Difficult in: None Usual diet at home per pt, poor food intake before admission d/t alcohol abuse. Skin Integrity/Comment: intact Current %PO Fair (50-74%) Estimated Nutritional Goals BEE in Kcals: Using Current wt Calories/Kcals/Kg 30-35 Kcals Calculated 4764-8371 Protein: Using Current wt Protein g/k.2-1.4 Protein Calculated 44-52 Fluid: ml 1110-1295ml (1ml/kcal) Nutritional Problem 1. Problem Problem inadeuqate food intake Etiology alcohol abuse Signs/Symptoms: BMI 15.5 - underweight Malnutrition Alert Body Fat Depletion (Non-Severe) Mild Depletion Malnutrition Related to Morbid Obesity Malnutrition related to morbid obesity No Intervention/Recommendation Comments 1. Continue with low sodium diet as ordered. Encouraged oral intake, adding snacks between meals, protein food intake. pt verbalized understand. 2. Monitor PO intake, wt, labs and skin integrity 3. F/U as moderate risk in 3-5 days, 01/01-01/03 Expected Outcomes/Goals Expected Outcomes/Goals 1. PO intake to meet at least 75% of nutritional needs. 2. Wt stability, skin to remain intact, labs to approach WNL.
[2017-12-30] MEDS: Diltiazem 30 mg Tab PO SCH ×5 (00:11→23:12)
--- NOTE | 2017-12-30 02:58 | Consultation ---
DATE OF CONSULTATION: 12/28/[address] Sal Thomas. HISTORY OF PRESENT ILLNESS: This is a 62-year-old female patient who apparently being discharged from [facility]. The patient had been drinking and got drunk and passed out. Following this, the patient was brought to the Emergency Room. The patient had sinus tachycardia, delirium tremors, hence the patient is admitted. Cardiac consult is requested. PAST MEDICAL HISTORY: Alcohol intoxication, hypertension, gastroenteritis, anxiety, depression, alcoholic neuropathy. FAMILY HISTORY: Unremarkable. SOCIAL HISTORY: The patient drinks alcohol in heavy amounts. ALLERGIES: None. PHYSICAL EXAMINATION: VITAL SIGNS: Blood pressure 160/70, pulse 110, and respirations 28. HEAD: Normocephalic. No lumps or bumps. EYES: Pupils equal, reactive to light. Fundi show AV nicking, sclerae white, conjunctivae pink. NECK: Carotid 2+. Normal upstroke. JVD flat. Thyroid not palpable. Lymph nodes not palpable. CHEST: Shows increased AP diameter. No kyphosis, scoliosis. LUNGS: Bilateral bronchovesicular breath sounds. HEART: PMI fifth intercostal space with lateral to midclavicular line. S1, S2. No S3, S4, sinus tachycardia. ABDOMEN: Soft. Liver, spleen not palpable. NEUROLOGIC: Some tremors secondary to alcohol withdrawal. CLINICAL IMPRESSION: 1. Sinus tachycardia. We will start the patient on Lopressor, Cardizem. 2. Delirium tremors. 3. Alcohol intoxication. 4. Protein calorie malnutrition. 5. Anxiety, depression. 6. Alcoholic neuropathy. 7. Hypertension. PLAN: The patient to continue present treatment. We will follow the patient. JOB# [id number]
[2017-12-30] MEDS: D5-0.9%NS 1,000 ML IV SCH ×2 (05:24→13:00)
[2017-12-30 05:30] LABS: % BASOPHILS 0.4 % (0.0-2.0); % EOSINOPHILS 0.8 % (0.0-5.0); % LYMPHOCYTES 33.6 % (20.0-50.0); % MONOCYTES 13.3 % (2.0-10.0); % NEUTROPHILS 51.9 % (40.0-80.0); HEMATOCRIT 38.2 % (41.0-60); HEMOGLOBIN 13.2 gm/dL (12-16); MEAN CORPUSCULAR HEMOGLOBIN 34.2 pg (27.0-31.0); MEAN CORPUSCULAR HGB CONC 34.6 pg (28.0-36.0); MEAN PLATELET VOLUME 7.4 fl; MONOCYTE ABSOLUTE 0.8 Th/cmm (0.3-1.0); NEUTROPHILE ABSOLUTE 3.1 Th/cmm (1.8-8.0); PLATELET COUNT 226 Th/cmm (150-400); RED BLOOD COUNT 3.86 Mil/cmm (3.80-5.10); RED CELL DISTRIBUTION WIDTH 15.7 % (11.5-20.0); WHITE BLOOD COUNT 5.9 Th/cmm (4.8-10.8)
[2017-12-30 05:43] LABS: ANION GAP 8.8 (7.0-16.0); BUN - UREA NITROGEN 11 mg/dL (7-25); CALCIUM SERUM 8.8 mg/dL (8.6-10.3); CARBON DIOXIDE 23.3 mEq/L (21.0-31.0); CHLORIDE 111 mEq/L (98-107); CREATININE - SERUM 0.6 mg/dL (0.6-1.2); GFR AFRICAN-AMERICAN > 60.0 ml/min (>90); GFR NON AFRICAN-AMERICAN > 60.0 ml/min; GLUCOSE 107 mg/dL (70-105); POTASSIUM SERUM 4.1 mEq/L (3.5-5.1); SODIUM SERUM 139 mEq/L (136-145)
--- NOTE | 2017-12-30 12:29 | General Progress Note ---
Subjective - Review of Systems Service Date: 12/30/17 Subjective: alert, feels better, less anxious, no tremors Objective - Results Result Diagrams: 12/30/17 04:35 12/30/17 04:35 Recent Labs: Laboratory Last Values WBC 5.9 Th/cmm (4.8-10.8) D 12/30/17 04:35 RBC 3.86 Mil/cmm (3.80-5.10) 12/30/17 04:35 Hgb 13.2 gm/dL (12-16) 12/30/17 04:35 Hct 38.2 % (41.0-60) L 12/30/17 04:35 MCV 99.0 fl (81-100) 12/30/17 04:35 MCH 34.2 pg (27.0-31.0) H 12/30/17 04:35 MCHC Differential 34.6 pg (28.0-36.0) 12/30/17 04:35 RDW 15.7 % (11.5-20.0) 12/30/17 04:35 Plt Count 226 Th/cmm (150-400) D 12/30/17 04:35 MPV 7.4 fl 12/30/17 04:35 Neutrophils % 51.9 % (40.0-80.0) 12/30/17 04:35 Lymphocytes % 33.6 % (20.0-50.0) 12/30/17 04:35 Monocytes % 13.3 % (2.0-10.0) H 12/30/17 04:35 Eosinophils % 0.8 % (0.0-5.0) 12/30/17 04:35 Basophils % 0.4 % (0.0-2.0) 12/30/17 04:35 PT 8.9 SECONDS (9.5-11.5) L 12/28/17 09:35 INR < 0.90 (0.5-1.4) 12/28/17 09:35 D-Dimer 970 ng/mL (100-400) H 12/28/17 07:55 Sodium 139 mEq/L (136-145) 12/30/17 04:35 Potassium 4.1 mEq/L (3.5-5.1) 12/30/17 04:35 Chloride 111 mEq/L (98-107) H 12/30/17 04:35 Carbon Dioxide 23.3 mEq/L (21.0-31.0) 12/30/17 04:35 Anion Gap 8.8 (7.0-16.0) 12/30/17 04:35 BUN 11 mg/dL (7-25) 12/30/17 04:35 Creatinine 0.6 mg/dL (0.6-1.2) 12/30/17 04:35 Est GFR ( Amer) > 60.0 ml/min (>90) 12/30/17 04:35 Est GFR (Non-Af Amer) > 60.0 ml/min 12/30/17 04:35 BUN/Creatinine Ratio 18.3 12/30/17 04:35 Glucose 107 mg/dL (70-105) H 12/30/17 04:35 Uric Acid 4.4 mg/dL (2.3-6.6) 12/29/17 04:45 Calcium 8.8 mg/dL (8.6-10.3) 12/30/17 04:35 Phosphorus 3.4 mg/dL (2.5-5.0) 12/29/17 04:45 Magnesium 2.7 mg/dL (1.9-2.7) 12/29/17 04:45 Total Bilirubin 0.4 mg/dL (0.3-1.0) 12/28/17 07:55 AST 53 U/L (13-39) H 12/28/17 07:55 ALT 28 U/L (7-52) 12/28/17 07:55 Alkaline Phosphatase 96 U/L (34-104) 12/28/17 07:55 Creatine Kinase 46 U/L (30-223) 12/28/17 07:55 Troponin I 0.01 ng/mL (0.01-0.05) 12/28/17 07:55 B-Natriuretic Peptide 21.4 pg/mL (5.0-100.0) 12/28/17 07:55 Total Protein 6.1 gm/dL (6.0-8.3) 12/28/17 07:55 Albumin 4.1 gm/dL (3.7-5.3) 12/28/17 07:55 Globulin 2.0 gm/dL 12/28/17 07:55 Albumin/Globulin Ratio 2.1 (1.0-1.8) H 12/28/17 07:55 Triglycerides 401 mg/dL (<150) H 12/28/17 07:55 Cholesterol 181 mg/dL (<200) 12/28/17 07:55 LDL Cholesterol Direct 36 mg/dL (75-193) L 12/28/17 07:55 HDL Cholesterol 81 mg/dL (23-92) 12/28/17 07:55 Amylase 27 U/L (29-103) L 12/28/17 07:55 Lipase 26 U/L (11-82) 12/28/17 07:55 TSH 2.68 uIU/ml (0.34-5.60) 12/29/17 04:45 Urine Source RANDOM 12/28/17 08:10 Urine Color YELLOW 12/28/17 08:10 Urine Clarity CLEAR (CLEAR) 12/28/17 08:10 Urine pH 6.0 (4.6 - 8.0) 12/28/17 08:10 Ur Specific [place] 1.020 (1.005-1.030) 12/28/17 08:10 Urine Protein NEGATIVE mg/dL (NEGATIVE) 12/28/17 08:10 Urine Glucose (UA) NEGATIVE mg/dL (NEGATIVE) 12/28/17 08:10 Urine Ketones 15 mg/dL (NEGATIVE) H 12/28/17 08:10 Urine Blood NEGATIVE (NEGATIVE) 12/28/17 08:10 Urine Nitrate NEGATIVE (NEGATIVE) 12/28/17 08:10 Urine Bilirubin NEGATIVE (NEGATIVE) 12/28/17 08:10 Urine Urobilinogen 0.2 E.U./dL (0.2 - 1.0) 12/28/17 08:10 Ur Leukocyte Esterase NEGATIVE (NEGATIVE) 12/28/17 08:10 Urine Test NEGATIVE 12/28/17 06:00 Salicylates < 25.0 mg/L (30.0-100.0) L 12/28/17 07:55 Urine Opiates Screen NEGATIVE (NEGATIVE) 12/28/17 06:00 Urine Methadone Screen NEGATIVE (NEGATIVE) 12/28/17 06:00 Acetaminophen < 10.0 ug/mL (10.0-30.0) L 12/28/17 07:55 Ur Barbiturates Screen NEGATIVE (NEGATIVE) 12/28/17 06:00 Ur Tricyclics Screen NEGATIVE (NEGATIVE) 12/28/17 06:00 Ur Phencyclidine Scrn NEGATIVE (NEGATIVE) 12/28/17 06:00 Amphetamines Screen NEGATIVE (NEGATIVE) 12/28/17 06:00 U Methamphetamines Scrn NEGATIVE (NEGATIVE) 12/28/17 06:00 U Benzodiazepines Scrn NEGATIVE (NEGATIVE) 12/28/17 06:00 U Cocaine Metab Screen NEGATIVE (NEGATIVE) 12/28/17 06:00 U Cannabinoids Screen POSITIVE (NEGATIVE) H 12/28/17 06:00 Ethyl Alcohol < 10 mg/dL (0-10) 12/28/17 07:55 - Physical Exam Vitals and I&O: Vital Signs Temp 98.2 F 12/30/17 08:50 Pulse 72 12/30/17 12:00 Resp 18 12/30/17 08:50 BP 113/67 12/30/17 08:50 Pulse Ox 99 12/30/17 08:50 Intake & Output 12/29/17 12/30/17 12/30/17 18:59 06:59 18:59 Intake Total 2582 960 Balance 2582 960 Weight (lbs) 40.115 kg 39.1 kg Intake: Intake, IV Amount 732 D5-0.9%Ns 1,000 ml @ 80 732 mls/hr IV .[id number] [facility] Rx #:[id number] Oral 1850 960 Other: # Voids 6 5 # Bowel Movements 1 0 Stool Characteristics Soft Formed Brown Weight Source Bedscale Bedscale Active Medications: Current Medications Atenolol (Tenormin) 25 mg PO DAILY [facility] Stop: 02/27/18 08:59 Last Admin: 12/30/17 08:35 Dose: 25 mg Chlordiazepoxide (Librium) 25 mg PO TID [facility]; Protocol Stop: 02/26/18 15:52 Last Admin: 12/30/17 08:35 Dose: 25 mg Citalopram Hydrobromide (Celexa) 20 mg PO DAILY [facility]; Protocol Stop: 02/27/18 11:59 Last Admin: 12/30/17 08:35 Dose: 20 mg Diltiazem HCl (Cardizem) 60 mg PO Q6HR [facility] Stop: 02/26/18 17:59 Last Admin: 12/30/17 12:00 Dose: 60 mg Gabapentin (Neurontin) 300 mg PO DAILY [facility] Stop: 02/27/18 08:59 Last Admin: 12/30/17 08:35 Dose: 300 mg Multivitamins/Minerals 10 ml/Thiamine HCl 100 mg/ Magnesium Sulfate 2 gm/ Folic Acid 1 mg / Sodium Chloride 1,015.2 mls @ 80 mls/hr IV Q24H [facility] Stop: 02/26/18 15:59 Last Admin: 12/29/17 16:45 Dose: 80 mls/hr Dextrose/Sodium Chloride (D5-0.9%Ns) 1,000 mls @ 80 mls/hr IV .[id number] [facility] Stop: 02/26/18 10:59 Last Admin: 12/30/17 05:24 Dose: 80 mls/hr Temazepam (Restoril) 15 mg PO HS PRN; Protocol PRN Reason: Insomnia Stop: 02/26/18 15:05 Last Admin: 12/29/17 21:07 Dose: 15 mg General: Alert, Oriented x3, No acute distress HEENT: Atraumatic, PERRLA, Mucous membr. moist/pink Neck: Supple, +2 carotid pulse wo bruit Cardiovascular: Regular rate, Normal S1, Normal S2 Abdomen: Bowel sounds, Soft Extremities: no Edema Neurological: Sensation intact Skin: no Rash Psych/Mental Status: Mood NL Assessment/Plan - Assessment Assessment: Hyponatremia DT'S Tachy resolved Malnutrition Anxiety/Depression Neuropathy Ess Htn Drug abuse ( alcohol/Cannabinoids) - Plan Plan: Lab - Result Diagrams 12/29/17 04:45 12/29/17 04:45 Current Medications Atenolol (Tenormin) 25 mg PO DAILY [facility] Stop: 02/27/18 08:59 Last Admin: 12/29/17 08:23 Dose: 25 mg Chlordiazepoxide (Librium) 25 mg PO TID [facility]; Protocol Stop: 02/26/18 15:52 Last Admin: 12/29/17 13:22 Dose: 25 mg Citalopram Hydrobromide (Celexa) 20 mg PO DAILY [facility]; Protocol Stop: 02/27/18 11:59 Last Admin: 12/29/17 11:41 Dose: 20 mg Diltiazem HCl (Cardizem) 60 mg PO Q6HR [facility] Stop: 02/26/18 17:59 Last Admin: 12/29/17 11:42 Dose: Not Given Gabapentin (Neurontin) 300 mg PO DAILY [facility] Stop: 02/27/18 08:59 Last Admin: 12/29/17 08:23 Dose: 300 mg Multivitamins/Minerals 10 ml/Thiamine HCl 100 mg/ Magnesium Sulfate 2 gm/ Folic Acid 1 mg / Sodium Chloride 1,015.2 mls @ 80 mls/hr IV Q24H [facility] Stop: 02/26/18 15:59 Last Infusion: 12/29/17 05:30 Dose: Infused Dextrose/Sodium Chloride (D5-0.9%Ns) 1,000 mls @ 80 mls/hr IV .[id number] [facility] Stop: 02/26/18 10:59 Last Infusion: 12/29/17 05:52 Dose: 80 mls/hr Temazepam (Restoril) 15 mg PO HS PRN; Protocol PRN Reason: Insomnia Stop: 02/26/18 15:05 Last Admin: 12/28/17 21:33 Dose: 15 mg Lab - Result Diagrams 12/30/17 04:35 12/30/17 04:35 continue IVF monitor electrolytes no more tremors Nutritional Asmnt/Malnutr-PDOC - Dietary Evaluation Malnutrition Findings (Please click <Entered> for more info): Nutritional Asmnt/Malnutrition Start: 12/29/17 14: 44 Text: Status: Complete Freq: Protocol: Document 12/29/17 14:44 LCHENG (Rec: 12/29/17 14:58 LCHENG [email or web address]) Nutritional Asmnt/Malnutrition Patient General Information Nutritional Screening High Risk Diagnosis delirium tremens Pertinent Medical Hx/Surgical Hx HTN, alcohol abuse Subjective Information Consult received for BS 196 at admission. pt seen sitting up in bed having lunch at time of visit, alert. Pt stated her appetite has been improved. Per EMR, PO intake 50-75%. Pt likes milk. Pt expressed concern about her weight. Pt was aware of underweight. Current Diet Order/ Nutrition Support low sodium Pertinent Medications D5-0.9%ns, multivitamins/ minerals/thiamine/magnesium/ folic acid Pertinent Labs 12/29 Glucose 133 (trending down) 12/28 Na 126, Cl 92, Cr 0.5, glucose 196 Nutritional Hx/Data Height 1.55 m Height (Calculated Centimeters) 154.9 Current Weight (lbs) 37.195 kg Weight (Calculated Kilograms) 37.2 Weight (Calculated Grams) 02363.6 [place] Body Weight 105 Body Mass Index (BMI) 15.5 Weight Status Underweight GI Symptoms GI Symptoms None Last BM not indicated Difficult in: None Usual diet at home per pt, poor food intake before admission d/t alcohol abuse. Skin Integrity/Comment: intact Current %PO Fair (50-74%) Estimated Nutritional Goals BEE in Kcals: Using Current wt Calories/Kcals/Kg 30-35 Kcals Calculated 5270-7698 Protein: Using Current wt Protein g/k.2-1.4 Protein Calculated 44-52 Fluid: ml 1110-1295ml (1ml/kcal) Nutritional Problem 1. Problem Problem inadeuqate food intake Etiology alcohol abuse Signs/Symptoms: BMI 15.5 - underweight Malnutrition Alert Body Fat Depletion (Non-Severe) Mild Depletion Malnutrition Related to Morbid Obesity Malnutrition related to morbid obesity No Intervention/Recommendation Comments 1. Continue with low sodium diet as ordered. Encouraged oral intake, adding snacks between meals, protein food intake. pt verbalized understand. 2. Monitor PO intake, wt, labs and skin integrity 3. F/U as moderate risk in 3-5 days, 01/01-01/03 Expected Outcomes/Goals Expected Outcomes/Goals 1. PO intake to meet at least 75% of nutritional needs. 2. Wt stability, skin to remain intact, labs to approach WNL.
--- NOTE | 2017-12-30 12:57 | Progress Notes ---
DATE: 12/30/2017 Case was discussed with staff of the patient, reviewed records. The patient was brought to the medical floor. The patient continues to be in detoxification. Continues to be easily overwhelmed. Continues to be depressed. She still gets crying when she talked about her left her 8 years ago after 25 years of marriage. She continues to have interest in going to [facility] for treatment for chemical dependency and the patient denies any intent to harm herself or anybody and I will recommend to continue with her medication and need follow up with the psychiatrist upon discharge. Continues to be on a detox protocol. Thank you very much for allowing me to participate in the care of this most interesting lady. [facility]# [id number]
--- NOTE | 2017-12-30 13:02 | Infectious Disease Prog Note ---
Infectious Disease Subjective - Review of Systems Service Date: 12/30/17 Subjective: Doing better, no tachycardia, no nausea. tremors present, Infectious Disease Objective - Results Result Diagrams: 12/30/17 04:35 12/30/17 04:35 Recent Labs: Laboratory Last Values WBC 5.9 Th/cmm (4.8-10.8) D 12/30/17 04:35 RBC 3.86 Mil/cmm (3.80-5.10) 12/30/17 04:35 Hgb 13.2 gm/dL (12-16) 12/30/17 04:35 Hct 38.2 % (41.0-60) L 12/30/17 04:35 MCV 99.0 fl (81-100) 12/30/17 04:35 MCH 34.2 pg (27.0-31.0) H 12/30/17 04:35 MCHC Differential 34.6 pg (28.0-36.0) 12/30/17 04:35 RDW 15.7 % (11.5-20.0) 12/30/17 04:35 Plt Count 226 Th/cmm (150-400) D 12/30/17 04:35 MPV 7.4 fl 12/30/17 04:35 Neutrophils % 51.9 % (40.0-80.0) 12/30/17 04:35 Lymphocytes % 33.6 % (20.0-50.0) 12/30/17 04:35 Monocytes % 13.3 % (2.0-10.0) H 12/30/17 04:35 Eosinophils % 0.8 % (0.0-5.0) 12/30/17 04:35 Basophils % 0.4 % (0.0-2.0) 12/30/17 04:35 PT 8.9 SECONDS (9.5-11.5) L 12/28/17 09:35 INR < 0.90 (0.5-1.4) 12/28/17 09:35 D-Dimer 970 ng/mL (100-400) H 12/28/17 07:55 Sodium 139 mEq/L (136-145) 12/30/17 04:35 Potassium 4.1 mEq/L (3.5-5.1) 12/30/17 04:35 Chloride 111 mEq/L (98-107) H 12/30/17 04:35 Carbon Dioxide 23.3 mEq/L (21.0-31.0) 12/30/17 04:35 Anion Gap 8.8 (7.0-16.0) 12/30/17 04:35 BUN 11 mg/dL (7-25) 12/30/17 04:35 Creatinine 0.6 mg/dL (0.6-1.2) 12/30/17 04:35 Est GFR ( Amer) > 60.0 ml/min (>90) 12/30/17 04:35 Est GFR (Non-Af Amer) > 60.0 ml/min 12/30/17 04:35 BUN/Creatinine Ratio 18.3 12/30/17 04:35 Glucose 107 mg/dL (70-105) H 12/30/17 04:35 Uric Acid 4.4 mg/dL (2.3-6.6) 12/29/17 04:45 Calcium 8.8 mg/dL (8.6-10.3) 12/30/17 04:35 Phosphorus 3.4 mg/dL (2.5-5.0) 12/29/17 04:45 Magnesium 2.7 mg/dL (1.9-2.7) 12/29/17 04:45 Total Bilirubin 0.4 mg/dL (0.3-1.0) 12/28/17 07:55 AST 53 U/L (13-39) H 12/28/17 07:55 ALT 28 U/L (7-52) 12/28/17 07:55 Alkaline Phosphatase 96 U/L (34-104) 12/28/17 07:55 Creatine Kinase 46 U/L (30-223) 12/28/17 07:55 Troponin I 0.01 ng/mL (0.01-0.05) 12/28/17 07:55 B-Natriuretic Peptide 21.4 pg/mL (5.0-100.0) 12/28/17 07:55 Total Protein 6.1 gm/dL (6.0-8.3) 12/28/17 07:55 Albumin 4.1 gm/dL (3.7-5.3) 12/28/17 07:55 Globulin 2.0 gm/dL 12/28/17 07:55 Albumin/Globulin Ratio 2.1 (1.0-1.8) H 12/28/17 07:55 Triglycerides 401 mg/dL (<150) H 12/28/17 07:55 Cholesterol 181 mg/dL (<200) 12/28/17 07:55 LDL Cholesterol Direct 36 mg/dL (75-193) L 12/28/17 07:55 HDL Cholesterol 81 mg/dL (23-92) 12/28/17 07:55 Amylase 27 U/L (29-103) L 12/28/17 07:55 Lipase 26 U/L (11-82) 12/28/17 07:55 TSH 2.68 uIU/ml (0.34-5.60) 12/29/17 04:45 Urine Source RANDOM 12/28/17 08:10 Urine Color YELLOW 12/28/17 08:10 Urine Clarity CLEAR (CLEAR) 12/28/17 08:10 Urine pH 6.0 (4.6 - 8.0) 12/28/17 08:10 Ur Specific [place] 1.020 (1.005-1.030) 12/28/17 08:10 Urine Protein NEGATIVE mg/dL (NEGATIVE) 12/28/17 08:10 Urine Glucose (UA) NEGATIVE mg/dL (NEGATIVE) 12/28/17 08:10 Urine Ketones 15 mg/dL (NEGATIVE) H 12/28/17 08:10 Urine Blood NEGATIVE (NEGATIVE) 12/28/17 08:10 Urine Nitrate NEGATIVE (NEGATIVE) 12/28/17 08:10 Urine Bilirubin NEGATIVE (NEGATIVE) 12/28/17 08:10 Urine Urobilinogen 0.2 E.U./dL (0.2 - 1.0) 12/28/17 08:10 Ur Leukocyte Esterase NEGATIVE (NEGATIVE) 12/28/17 08:10 Urine Test NEGATIVE 12/28/17 06:00 Salicylates < 25.0 mg/L (30.0-100.0) L 12/28/17 07:55 Urine Opiates Screen NEGATIVE (NEGATIVE) 12/28/17 06:00 Urine Methadone Screen NEGATIVE (NEGATIVE) 12/28/17 06:00 Acetaminophen < 10.0 ug/mL (10.0-30.0) L 12/28/17 07:55 Ur Barbiturates Screen NEGATIVE (NEGATIVE) 12/28/17 06:00 Ur Tricyclics Screen NEGATIVE (NEGATIVE) 12/28/17 06:00 Ur Phencyclidine Scrn NEGATIVE (NEGATIVE) 12/28/17 06:00 Amphetamines Screen NEGATIVE (NEGATIVE) 12/28/17 06:00 U Methamphetamines Scrn NEGATIVE (NEGATIVE) 12/28/17 06:00 U Benzodiazepines Scrn NEGATIVE (NEGATIVE) 12/28/17 06:00 U Cocaine Metab Screen NEGATIVE (NEGATIVE) 12/28/17 06:00 U Cannabinoids Screen POSITIVE (NEGATIVE) H 12/28/17 06:00 Ethyl Alcohol < 10 mg/dL (0-10) 12/28/17 07:55 - Physical Exam Vitals and I&O: Vital Signs Temp 98 F 12/30/17 12:33 Pulse 77 12/30/17 12:33 Resp 18 12/30/17 12:33 BP 114/77 12/30/17 12:33 Pulse Ox 100 12/30/17 12:33 Intake & Output 12/29/17 12/30/17 12/30/17 18:59 06:59 18:59 Intake Total 2582 960 Balance 2582 960 Weight (lbs) 40.115 kg 39.1 kg Intake: Intake, IV Amount 732 D5-0.9%Ns 1,000 ml @ 80 732 mls/hr IV .[id number] [facility] Rx #:[id number] Oral 1850 960 Other: # Voids 6 5 # Bowel Movements 1 0 Stool Characteristics Soft Formed Brown Weight Source Bedscale Bedscale Active Medications: Current Medications Atenolol (Tenormin) 25 mg PO DAILY [facility] Stop: 02/27/18 08:59 Last Admin: 12/30/17 08:35 Dose: 25 mg Chlordiazepoxide (Librium) 25 mg PO TID [facility]; Protocol Stop: 02/26/18 15:52 Last Admin: 12/30/17 08:35 Dose: 25 mg Citalopram Hydrobromide (Celexa) 20 mg PO DAILY [facility]; Protocol Stop: 02/27/18 11:59 Last Admin: 12/30/17 08:35 Dose: 20 mg Diltiazem HCl (Cardizem) 60 mg PO Q6HR [facility] Stop: 02/26/18 17:59 Last Admin: 12/30/17 12:00 Dose: 60 mg Gabapentin (Neurontin) 300 mg PO DAILY [facility] Stop: 02/27/18 08:59 Last Admin: 12/30/17 08:35 Dose: 300 mg Multivitamins/Minerals 10 ml/Thiamine HCl 100 mg/ Magnesium Sulfate 2 gm/ Folic Acid 1 mg / Sodium Chloride 1,015.2 mls @ 80 mls/hr IV Q24H [facility] Stop: 02/26/18 15:59 Last Admin: 12/29/17 16:45 Dose: 80 mls/hr Dextrose/Sodium Chloride (D5-0.9%Ns) 1,000 mls @ 80 mls/hr IV .[id number] [facility] Stop: 02/26/18 10:59 Last Admin: 12/30/17 05:24 Dose: 80 mls/hr Temazepam (Restoril) 15 mg PO HS PRN; Protocol PRN Reason: Insomnia Stop: 02/26/18 15:05 Last Admin: 12/29/17 21:07 Dose: 15 mg General: no acute distress HEENT: atraumatic, normocephalic, PERRLA Neck: supple, no thyromegaly Cardiovascular: S1S2, regular Lungs: clear to auscultation bilaterally, clear to percussion Abdomen: soft, no tender, no distended Extremities: no cyanosis, no clubbing, no edema Neurological: awake, alert, oriented Skin: intact Infectious Disease Assmt/Plan - Assessment Assessment: 1. Nausea, vomiting, diarrhea, maybe symptoms of gastroenteritis versus may have alcohol withdrawal. Delirium tremens. Improving. 2. Suspect delirium tremens. 3. Hypertension, which seems new or part of DT. 4. Tachycardia. Improved/ 5. Anxiety disorder. 6. Hyponatremia. improved. - Plan Plan: Taper librium. Nutritional Asmnt/Malnutr-PDOC - Dietary Evaluation Malnutrition Findings (Please click <Entered> for more info): Nutritional Asmnt/Malnutrition Start: 12/29/17 14: 44 Text: Status: Complete Freq: Protocol: Document 12/29/17 14:44 ANIBALG (Rec: 12/29/17 14:58 [place] [email or web address]) Nutritional Asmnt/Malnutrition Patient General Information Nutritional Screening High Risk Diagnosis delirium tremens Pertinent Medical Hx/Surgical Hx HTN, alcohol abuse Subjective Information Consult received for BS 196 at admission. pt seen sitting up in bed having lunch at time of visit, alert. Pt stated her appetite has been improved. Per EMR, PO intake 50-75%. Pt likes milk. Pt expressed concern about her weight. Pt was aware of underweight. Current Diet Order/ Nutrition Support low sodium Pertinent Medications D5-0.9%ns, multivitamins/ minerals/thiamine/magnesium/ folic acid Pertinent Labs 12/29 Glucose 133 (trending down) 12/28 Na 126, Cl 92, Cr 0.5, glucose 196 Nutritional Hx/Data Height 1.55 m Height (Calculated Centimeters) 154.9 Current Weight (lbs) 37.195 kg Weight (Calculated Kilograms) 37.2 Weight (Calculated Grams) 64105.6 [place] Body Weight 105 Body Mass Index (BMI) 15.5 Weight Status Underweight GI Symptoms GI Symptoms None Last BM not indicated Difficult in: None Usual diet at home per pt, poor food intake before admission d/t alcohol abuse. Skin Integrity/Comment: intact Current %PO Fair (50-74%) Estimated Nutritional Goals BEE in Kcals: Using Current wt Calories/Kcals/Kg 30-35 Kcals Calculated 0304-9917 Protein: Using Current wt Protein g/k.2-1.4 Protein Calculated 44-52 Fluid: ml 1110-1295ml (1ml/kcal) Nutritional Problem 1. Problem Problem inadeuqate food intake Etiology alcohol abuse Signs/Symptoms: BMI 15.5 - underweight Malnutrition Alert Body Fat Depletion (Non-Severe) Mild Depletion Malnutrition Related to Morbid Obesity Malnutrition related to morbid obesity No Intervention/Recommendation Comments 1. Continue with low sodium diet as ordered. Encouraged oral intake, adding snacks between meals, protein food intake. pt verbalized understand. 2. Monitor PO intake, wt, labs and skin integrity 3. F/U as moderate risk in 3-5 days, 01/01-01/03 Expected Outcomes/Goals Expected Outcomes/Goals 1. PO intake to meet at least 75% of nutritional needs. 2. Wt stability, skin to remain intact, labs to approach WNL.
[2017-12-30] MEDS: Multivitamin Inj 10 ML, Thiamine HCL 100 MG, Magnesium Sulfate 2 GM, Folic Acid 1 MG in... IV SCH (16:23)
[2017-12-31] MEDS: D5-0.9%NS 1,000 ML IV SCH ×4 (01:00→17:04)
[2017-12-31 05:46] LABS: % BASOPHILS 0.3 % (0.0-2.0); % EOSINOPHILS 0.8 % (0.0-5.0); % LYMPHOCYTES 29.9 % (20.0-50.0); % MONOCYTES 12.7 % (2.0-10.0); % NEUTROPHILS 56.3 % (40.0-80.0); EOSINOPHILE ABSOLUTE 0.1 Th/cmm (0.1-0.4); HEMATOCRIT 35.1 % (41.0-60); HEMOGLOBIN 12.1 gm/dL (12-16); MEAN CELL VOLUME 100.2 fl (81-100); MEAN CORPUSCULAR HEMOGLOBIN 34.4 pg (27.0-31.0); MEAN CORPUSCULAR HGB CONC 34.3 pg (28.0-36.0); MEAN PLATELET VOLUME 7.7 fl; MONOCYTE ABSOLUTE 0.8 Th/cmm (0.3-1.0); NEUTROPHILE ABSOLUTE 3.7 Th/cmm (1.8-8.0); PLATELET COUNT 200 Th/cmm (150-400); RED BLOOD COUNT 3.51 Mil/cmm (3.80-5.10); RED CELL DISTRIBUTION WIDTH 16.2 % (11.5-20.0); WHITE BLOOD COUNT 6.6 Th/cmm (4.8-10.8)
[2017-12-31] MEDS: Diltiazem 30 mg Tab PO SCH ×4 (05:59→23:26)
--- NOTE | 2017-12-31 15:54 | Infectious Disease Prog Note ---
Infectious Disease Subjective - Review of Systems Service Date: 12/31/17 Subjective: Doing better, no tachycardia, no nausea. tremors present, Infectious Disease Objective - Results Result Diagrams: 12/31/17 05:05 12/30/17 04:35 Recent Labs: Laboratory Last Values WBC 6.6 Th/cmm (4.8-10.8) 12/31/17 05:05 RBC 3.51 Mil/cmm (3.80-5.10) L 12/31/17 05:05 Hgb 12.1 gm/dL (12-16) 12/31/17 05:05 Hct 35.1 % (41.0-60) L 12/31/17 05:05 MCV 100.2 fl (81-100) H 12/31/17 05:05 MCH 34.4 pg (27.0-31.0) H 12/31/17 05:05 MCHC Differential 34.3 pg (28.0-36.0) 12/31/17 05:05 RDW 16.2 % (11.5-20.0) 12/31/17 05:05 Plt Count 200 Th/cmm (150-400) 12/31/17 05:05 MPV 7.7 fl 12/31/17 05:05 Neutrophils % 56.3 % (40.0-80.0) 12/31/17 05:05 Lymphocytes % 29.9 % (20.0-50.0) 12/31/17 05:05 Monocytes % 12.7 % (2.0-10.0) H 12/31/17 05:05 Eosinophils % 0.8 % (0.0-5.0) 12/31/17 05:05 Basophils % 0.3 % (0.0-2.0) 12/31/17 05:05 PT 8.9 SECONDS (9.5-11.5) L 12/28/17 09:35 INR < 0.90 (0.5-1.4) 12/28/17 09:35 D-Dimer 970 ng/mL (100-400) H 12/28/17 07:55 Sodium 139 mEq/L (136-145) 12/30/17 04:35 Potassium 4.1 mEq/L (3.5-5.1) 12/30/17 04:35 Chloride 111 mEq/L (98-107) H 12/30/17 04:35 Carbon Dioxide 23.3 mEq/L (21.0-31.0) 12/30/17 04:35 Anion Gap 8.8 (7.0-16.0) 12/30/17 04:35 BUN 11 mg/dL (7-25) 12/30/17 04:35 Creatinine 0.6 mg/dL (0.6-1.2) 12/30/17 04:35 Est GFR ( Amer) > 60.0 ml/min (>90) 12/30/17 04:35 Est GFR (Non-Af Amer) > 60.0 ml/min 12/30/17 04:35 BUN/Creatinine Ratio 18.3 12/30/17 04:35 Glucose 107 mg/dL (70-105) H 12/30/17 04:35 Plasma/Ser Osmolality 281 mOsmol/kg (275-295) 12/29/17 04:45 Uric Acid 4.4 mg/dL (2.3-6.6) 12/29/17 04:45 Calcium 8.8 mg/dL (8.6-10.3) 12/30/17 04:35 Phosphorus 3.4 mg/dL (2.5-5.0) 12/29/17 04:45 Magnesium 2.7 mg/dL (1.9-2.7) 12/29/17 04:45 Total Bilirubin 0.4 mg/dL (0.3-1.0) 12/28/17 07:55 AST 53 U/L (13-39) H 12/28/17 07:55 ALT 28 U/L (7-52) 12/28/17 07:55 Alkaline Phosphatase 96 U/L (34-104) 12/28/17 07:55 Creatine Kinase 46 U/L (30-223) 12/28/17 07:55 Troponin I 0.01 ng/mL (0.01-0.05) 12/28/17 07:55 B-Natriuretic Peptide 21.4 pg/mL (5.0-100.0) 12/28/17 07:55 Total Protein 6.1 gm/dL (6.0-8.3) 12/28/17 07:55 Albumin 4.1 gm/dL (3.7-5.3) 12/28/17 07:55 Globulin 2.0 gm/dL 12/28/17 07:55 Albumin/Globulin Ratio 2.1 (1.0-1.8) H 12/28/17 07:55 Triglycerides 401 mg/dL (<150) H 12/28/17 07:55 Cholesterol 181 mg/dL (<200) 12/28/17 07:55 LDL Cholesterol Direct 36 mg/dL (75-193) L 12/28/17 07:55 HDL Cholesterol 81 mg/dL (23-92) 12/28/17 07:55 Amylase 27 U/L (29-103) L 12/28/17 07:55 Lipase 26 U/L (11-82) 12/28/17 07:55 TSH 2.68 uIU/ml (0.34-5.60) 12/29/17 04:45 Urine Source RANDOM 12/28/17 08:10 Urine Color YELLOW 12/28/17 08:10 Urine Clarity CLEAR (CLEAR) 12/28/17 08:10 Urine pH 6.0 (4.6 - 8.0) 12/28/17 08:10 Ur Specific [place] 1.020 (1.005-1.030) 12/28/17 08:10 Urine Protein NEGATIVE mg/dL (NEGATIVE) 12/28/17 08:10 Urine Glucose (UA) NEGATIVE mg/dL (NEGATIVE) 12/28/17 08:10 Urine Ketones 15 mg/dL (NEGATIVE) H 12/28/17 08:10 Urine Blood NEGATIVE (NEGATIVE) 12/28/17 08:10 Urine Nitrate NEGATIVE (NEGATIVE) 12/28/17 08:10 Urine Bilirubin NEGATIVE (NEGATIVE) 12/28/17 08:10 Urine Urobilinogen 0.2 E.U./dL (0.2 - 1.0) 12/28/17 08:10 Ur Leukocyte Esterase NEGATIVE (NEGATIVE) 12/28/17 08:10 Urine Test NEGATIVE 12/28/17 06:00 Salicylates < 25.0 mg/L (30.0-100.0) L 12/28/17 07:55 Urine Opiates Screen NEGATIVE (NEGATIVE) 12/28/17 06:00 Urine Methadone Screen NEGATIVE (NEGATIVE) 12/28/17 06:00 Acetaminophen < 10.0 ug/mL (10.0-30.0) L 12/28/17 07:55 Ur Barbiturates Screen NEGATIVE (NEGATIVE) 12/28/17 06:00 Ur Tricyclics Screen NEGATIVE (NEGATIVE) 12/28/17 06:00 Ur Phencyclidine Scrn NEGATIVE (NEGATIVE) 12/28/17 06:00 Amphetamines Screen NEGATIVE (NEGATIVE) 12/28/17 06:00 U Methamphetamines Scrn NEGATIVE (NEGATIVE) 12/28/17 06:00 U Benzodiazepines Scrn NEGATIVE (NEGATIVE) 12/28/17 06:00 U Cocaine Metab Screen NEGATIVE (NEGATIVE) 12/28/17 06:00 U Cannabinoids Screen POSITIVE (NEGATIVE) H 12/28/17 06:00 Ethyl Alcohol < 10 mg/dL (0-10) 12/28/17 07:55 - Physical Exam Vitals and I&O: Vital Signs Temp 98.2 F 12/31/17 11:56 Pulse 83 12/31/17 11:56 Resp 18 12/31/17 11:56 BP 121/63 12/31/17 11:56 Pulse Ox 98 12/31/17 11:56 Intake & Output 12/30/17 12/31/17 12/31/17 18:59 06:59 18:59 Intake Total 400 2375.2 Balance 400 2375.2 Weight (lbs) 39.916 kg 40.37 kg Intake: Intake, IV Amount 2015.2 D5-0.9%Ns 1,000 ml @ 80 1000 mls/hr IV .[id number] [facility] Rx #:[id number] Multivitamin Inj 10 ml 1015.2 Thiamine HCL 100 mg Magnesium Sulfate 2 gm Folic Acid 1 mg In Sodium Chloride 0.9% 1,000 ml @ 80 mls/hr IV Q24H [facility] Rx #:[id number] Oral 400 360 Other: # Voids 5 2 # Bowel Movements 2 0 Weight Source Bedscale Bedscale Active Medications: Current Medications Atenolol (Tenormin) 25 mg PO DAILY [facility] Stop: 02/27/18 08:59 Last Admin: 12/31/17 08:13 Dose: Not Given Chlordiazepoxide (Librium) 25 mg PO TID [facility]; Protocol Stop: 02/26/18 15:52 Last Admin: 12/31/17 13:43 Dose: 25 mg Citalopram Hydrobromide (Celexa) 20 mg PO DAILY [facility]; Protocol Stop: 02/27/18 11:59 Last Admin: 12/31/17 08:12 Dose: 20 mg Diltiazem HCl (Cardizem) 60 mg PO Q6HR [facility] Stop: 02/26/18 17:59 Last Admin: 12/31/17 11:20 Dose: 60 mg Gabapentin (Neurontin) 300 mg PO DAILY [facility] Stop: 02/27/18 08:59 Last Admin: 12/31/17 08:11 Dose: 300 mg Dextrose/Sodium Chloride (D5-0.9%Ns) 1,000 mls @ 80 mls/hr IV .[id number] [facility] Stop: 02/26/18 10:59 Last Admin: 12/31/17 06:00 Dose: 80 mls/hr Temazepam (Restoril) 15 mg PO HS PRN; Protocol PRN Reason: Insomnia Stop: 02/26/18 15:05 Last Admin: 12/30/17 22:14 Dose: 15 mg General: no acute distress, well developed, well nourished HEENT: atraumatic, normocephalic, PERRLA, EOMI, moist mucous membrane Neck: supple, no thyromegaly, no lymphadenopathy, no rigid, no tracheostomy Cardiovascular: S1S2, regular Lungs: clear to auscultation bilaterally, clear to percussion Abdomen: soft, no tender, no distended Extremities: no cyanosis, no clubbing, no edema Neurological: awake, alert, oriented Skin: intact Infectious Disease Assmt/Plan - Assessment Assessment: 1. Nausea, vomiting, diarrhea, maybe symptoms of gastroenteritis versus may have alcohol withdrawal. Delirium tremens. Improving. 2. Suspect delirium tremens. 3. Hypertension, which seems new or part of DT. 4. Tachycardia. Improved/ 5. Anxiety disorder. 6. Hyponatremia. improved. - Plan Plan: Taper librium. Nutritional Asmnt/Malnutr-PDOC - Dietary Evaluation Malnutrition Findings (Please click <Entered> for more info): Nutritional Asmnt/Malnutrition Start: 12/29/17 14: 44 Text: Status: Complete Freq: Protocol: Document 12/29/17 14:44 ANIBALG (Rec: 12/29/17 14:58 [place] [email or web address]) Nutritional Asmnt/Malnutrition Patient General Information Nutritional Screening High Risk Diagnosis delirium tremens Pertinent Medical Hx/Surgical Hx HTN, alcohol abuse Subjective Information Consult received for BS 196 at admission. pt seen sitting up in bed having lunch at time of visit, alert. Pt stated her appetite has been improved. Per EMR, PO intake 50-75%. Pt likes milk. Pt expressed concern about her weight. Pt was aware of underweight. Current Diet Order/ Nutrition Support low sodium Pertinent Medications D5-0.9%ns, multivitamins/ minerals/thiamine/magnesium/ folic acid Pertinent Labs 12/29 Glucose 133 (trending down) 12/28 Na 126, Cl 92, Cr 0.5, glucose 196 Nutritional Hx/Data Height 1.55 m Height (Calculated Centimeters) 154.9 Current Weight (lbs) 37.195 kg Weight (Calculated Kilograms) 37.2 Weight (Calculated Grams) 57927.6 [place] Body Weight 105 Body Mass Index (BMI) 15.5 Weight Status Underweight GI Symptoms GI Symptoms None Last BM not indicated Difficult in: None Usual diet at home per pt, poor food intake before admission d/t alcohol abuse. Skin Integrity/Comment: intact Current %PO Fair (50-74%) Estimated Nutritional Goals BEE in Kcals: Using Current wt Calories/Kcals/Kg 30-35 Kcals Calculated 7859-2414 Protein: Using Current wt Protein g/k.2-1.4 Protein Calculated 44-52 Fluid: ml 1110-1295ml (1ml/kcal) Nutritional Problem 1. Problem Problem inadeuqate food intake Etiology alcohol abuse Signs/Symptoms: BMI 15.5 - underweight Malnutrition Alert Body Fat Depletion (Non-Severe) Mild Depletion Malnutrition Related to Morbid Obesity Malnutrition related to morbid obesity No Intervention/Recommendation Comments 1. Continue with low sodium diet as ordered. Encouraged oral intake, adding snacks between meals, protein food intake. pt verbalized understand. 2. Monitor PO intake, wt, labs and skin integrity 3. F/U as moderate risk in 3-5 days, 01/01-01/03 Expected Outcomes/Goals Expected Outcomes/Goals 1. PO intake to meet at least 75% of nutritional needs. 2. Wt stability, skin to remain intact, labs to approach WNL.
--- NOTE | 2017-12-31 16:27 | General Progress Note ---
Subjective - Review of Systems Service Date: 12/31/17 Subjective: alert, feels better, less anxious, no tremors, somewhat depressed Objective - Results Result Diagrams: 12/31/17 05:05 12/30/17 04:35 Recent Labs: Laboratory Last Values WBC 6.6 Th/cmm (4.8-10.8) 12/31/17 05:05 RBC 3.51 Mil/cmm (3.80-5.10) L 12/31/17 05:05 Hgb 12.1 gm/dL (12-16) 12/31/17 05:05 Hct 35.1 % (41.0-60) L 12/31/17 05:05 MCV 100.2 fl (81-100) H 12/31/17 05:05 MCH 34.4 pg (27.0-31.0) H 12/31/17 05:05 MCHC Differential 34.3 pg (28.0-36.0) 12/31/17 05:05 RDW 16.2 % (11.5-20.0) 12/31/17 05:05 Plt Count 200 Th/cmm (150-400) 12/31/17 05:05 MPV 7.7 fl 12/31/17 05:05 Neutrophils % 56.3 % (40.0-80.0) 12/31/17 05:05 Lymphocytes % 29.9 % (20.0-50.0) 12/31/17 05:05 Monocytes % 12.7 % (2.0-10.0) H 12/31/17 05:05 Eosinophils % 0.8 % (0.0-5.0) 12/31/17 05:05 Basophils % 0.3 % (0.0-2.0) 12/31/17 05:05 PT 8.9 SECONDS (9.5-11.5) L 12/28/17 09:35 INR < 0.90 (0.5-1.4) 12/28/17 09:35 D-Dimer 970 ng/mL (100-400) H 12/28/17 07:55 Sodium 139 mEq/L (136-145) 12/30/17 04:35 Potassium 4.1 mEq/L (3.5-5.1) 12/30/17 04:35 Chloride 111 mEq/L (98-107) H 12/30/17 04:35 Carbon Dioxide 23.3 mEq/L (21.0-31.0) 12/30/17 04:35 Anion Gap 8.8 (7.0-16.0) 12/30/17 04:35 BUN 11 mg/dL (7-25) 12/30/17 04:35 Creatinine 0.6 mg/dL (0.6-1.2) 12/30/17 04:35 Est GFR ( Amer) > 60.0 ml/min (>90) 12/30/17 04:35 Est GFR (Non-Af Amer) > 60.0 ml/min 12/30/17 04:35 BUN/Creatinine Ratio 18.3 12/30/17 04:35 Glucose 107 mg/dL (70-105) H 12/30/17 04:35 Plasma/Ser Osmolality 281 mOsmol/kg (275-295) 12/29/17 04:45 Uric Acid 4.4 mg/dL (2.3-6.6) 12/29/17 04:45 Calcium 8.8 mg/dL (8.6-10.3) 12/30/17 04:35 Phosphorus 3.4 mg/dL (2.5-5.0) 12/29/17 04:45 Magnesium 2.7 mg/dL (1.9-2.7) 12/29/17 04:45 Total Bilirubin 0.4 mg/dL (0.3-1.0) 12/28/17 07:55 AST 53 U/L (13-39) H 12/28/17 07:55 ALT 28 U/L (7-52) 12/28/17 07:55 Alkaline Phosphatase 96 U/L (34-104) 12/28/17 07:55 Creatine Kinase 46 U/L (30-223) 12/28/17 07:55 Troponin I 0.01 ng/mL (0.01-0.05) 12/28/17 07:55 B-Natriuretic Peptide 21.4 pg/mL (5.0-100.0) 12/28/17 07:55 Total Protein 6.1 gm/dL (6.0-8.3) 12/28/17 07:55 Albumin 4.1 gm/dL (3.7-5.3) 12/28/17 07:55 Globulin 2.0 gm/dL 12/28/17 07:55 Albumin/Globulin Ratio 2.1 (1.0-1.8) H 12/28/17 07:55 Triglycerides 401 mg/dL (<150) H 12/28/17 07:55 Cholesterol 181 mg/dL (<200) 12/28/17 07:55 LDL Cholesterol Direct 36 mg/dL (75-193) L 12/28/17 07:55 HDL Cholesterol 81 mg/dL (23-92) 12/28/17 07:55 Amylase 27 U/L (29-103) L 12/28/17 07:55 Lipase 26 U/L (11-82) 12/28/17 07:55 TSH 2.68 uIU/ml (0.34-5.60) 12/29/17 04:45 Urine Source RANDOM 12/28/17 08:10 Urine Color YELLOW 12/28/17 08:10 Urine Clarity CLEAR (CLEAR) 12/28/17 08:10 Urine pH 6.0 (4.6 - 8.0) 12/28/17 08:10 Ur Specific [place] 1.020 (1.005-1.030) 12/28/17 08:10 Urine Protein NEGATIVE mg/dL (NEGATIVE) 12/28/17 08:10 Urine Glucose (UA) NEGATIVE mg/dL (NEGATIVE) 12/28/17 08:10 Urine Ketones 15 mg/dL (NEGATIVE) H 12/28/17 08:10 Urine Blood NEGATIVE (NEGATIVE) 12/28/17 08:10 Urine Nitrate NEGATIVE (NEGATIVE) 12/28/17 08:10 Urine Bilirubin NEGATIVE (NEGATIVE) 12/28/17 08:10 Urine Urobilinogen 0.2 E.U./dL (0.2 - 1.0) 12/28/17 08:10 Ur Leukocyte Esterase NEGATIVE (NEGATIVE) 12/28/17 08:10 Urine Test NEGATIVE 12/28/17 06:00 Salicylates < 25.0 mg/L (30.0-100.0) L 12/28/17 07:55 Urine Opiates Screen NEGATIVE (NEGATIVE) 12/28/17 06:00 Urine Methadone Screen NEGATIVE (NEGATIVE) 12/28/17 06:00 Acetaminophen < 10.0 ug/mL (10.0-30.0) L 12/28/17 07:55 Ur Barbiturates Screen NEGATIVE (NEGATIVE) 12/28/17 06:00 Ur Tricyclics Screen NEGATIVE (NEGATIVE) 12/28/17 06:00 Ur Phencyclidine Scrn NEGATIVE (NEGATIVE) 12/28/17 06:00 Amphetamines Screen NEGATIVE (NEGATIVE) 12/28/17 06:00 U Methamphetamines Scrn NEGATIVE (NEGATIVE) 12/28/17 06:00 U Benzodiazepines Scrn NEGATIVE (NEGATIVE) 12/28/17 06:00 U Cocaine Metab Screen NEGATIVE (NEGATIVE) 12/28/17 06:00 U Cannabinoids Screen POSITIVE (NEGATIVE) H 12/28/17 06:00 Ethyl Alcohol < 10 mg/dL (0-10) 12/28/17 07:55 - Physical Exam Vitals and I&O: Vital Signs Temp 98.2 F 12/31/17 11:56 Pulse 83 12/31/17 11:56 Resp 18 12/31/17 11:56 BP 121/63 12/31/17 11:56 Pulse Ox 98 12/31/17 11:56 Intake & Output 12/30/17 12/31/17 12/31/17 18:59 06:59 18:59 Intake Total 400 2375.2 Balance 400 2375.2 Weight (lbs) 39.916 kg 40.37 kg Intake: Intake, IV Amount 2015.2 D5-0.9%Ns 1,000 ml @ 80 1000 mls/hr IV .[id number] [facility] Rx #:[id number] Multivitamin Inj 10 ml 1015.2 Thiamine HCL 100 mg Magnesium Sulfate 2 gm Folic Acid 1 mg In Sodium Chloride 0.9% 1,000 ml @ 80 mls/hr IV Q24H [facility] Rx #:[id number] Oral 400 360 Other: # Voids 5 2 # Bowel Movements 2 0 Weight Source Bedscale Bedscale Active Medications: Current Medications Atenolol (Tenormin) 25 mg PO DAILY [facility] Stop: 02/27/18 08:59 Last Admin: 12/31/17 08:13 Dose: Not Given Chlordiazepoxide (Librium) 25 mg PO BID [facility]; Protocol Stop: 03/01/18 16:59 Citalopram Hydrobromide (Celexa) 20 mg PO DAILY [facility]; Protocol Stop: 02/27/18 11:59 Last Admin: 12/31/17 08:12 Dose: 20 mg Diltiazem HCl (Cardizem) 60 mg PO Q6HR [facility] Stop: 02/26/18 17:59 Last Admin: 12/31/17 11:20 Dose: 60 mg Gabapentin (Neurontin) 300 mg PO DAILY [facility] Stop: 02/27/18 08:59 Last Admin: 12/31/17 08:11 Dose: 300 mg Dextrose/Sodium Chloride (D5-0.9%Ns) 1,000 mls @ 80 mls/hr IV .[id number] [facility] Stop: 02/26/18 10:59 Last Admin: 12/31/17 06:00 Dose: 80 mls/hr Temazepam (Restoril) 15 mg PO HS PRN; Protocol PRN Reason: Insomnia Stop: 02/26/18 15:05 Last Admin: 12/30/17 22:14 Dose: 15 mg General: Alert, Oriented x3, No acute distress HEENT: Atraumatic, PERRLA, Mucous membr. moist/pink Neck: Supple, +2 carotid pulse wo bruit Cardiovascular: Regular rate, Normal S1, Normal S2 Abdomen: Bowel sounds, Soft Extremities: no Edema Neurological: Sensation intact Skin: no Rash Psych/Mental Status: Mood NL Assessment/Plan - Assessment Assessment: Hyponatremia DT'S Tachy resolved Malnutrition Anxiety/Depression Neuropathy Ess Htn Drug abuse ( alcohol/Cannabinoids) - Plan Plan: Lab - Result Diagrams 12/29/17 04:45 12/29/17 04:45 Current Medications Atenolol (Tenormin) 25 mg PO DAILY [facility] Stop: 02/27/18 08:59 Last Admin: 12/29/17 08:23 Dose: 25 mg Chlordiazepoxide (Librium) 25 mg PO TID [facility]; Protocol Stop: 02/26/18 15:52 Last Admin: 12/29/17 13:22 Dose: 25 mg Citalopram Hydrobromide (Celexa) 20 mg PO DAILY [facility]; Protocol Stop: 02/27/18 11:59 Last Admin: 12/29/17 11:41 Dose: 20 mg Diltiazem HCl (Cardizem) 60 mg PO Q6HR [facility] Stop: 02/26/18 17:59 Last Admin: 12/29/17 11:42 Dose: Not Given Gabapentin (Neurontin) 300 mg PO DAILY [facility] Stop: 02/27/18 08:59 Last Admin: 12/29/17 08:23 Dose: 300 mg Multivitamins/Minerals 10 ml/Thiamine HCl 100 mg/ Magnesium Sulfate 2 gm/ Folic Acid 1 mg / Sodium Chloride 1,015.2 mls @ 80 mls/hr IV Q24H [facility] Stop: 02/26/18 15:59 Last Infusion: 12/29/17 05:30 Dose: Infused Dextrose/Sodium Chloride (D5-0.9%Ns) 1,000 mls @ 80 mls/hr IV .[id number] [facility] Stop: 02/26/18 10:59 Last Infusion: 12/29/17 05:52 Dose: 80 mls/hr Temazepam (Restoril) 15 mg PO HS PRN; Protocol PRN Reason: Insomnia Stop: 02/26/18 15:05 Last Admin: 12/28/17 21:33 Dose: 15 mg Lab - Result Diagrams 12/31/17 05:05 12/30/17 04:35 continue IVF monitor electrolytes no more tremors Nutritional Asmnt/Malnutr-PDOC - Dietary Evaluation Malnutrition Findings (Please click <Entered> for more info): Nutritional Asmnt/Malnutrition Start: 12/29/17 14: 44 Text: Status: Complete Freq: Protocol: Document 12/29/17 14:44 LCHENG (Rec: 12/29/17 14:58 [email or web address]) Nutritional Asmnt/Malnutrition Patient General Information Nutritional Screening High Risk Diagnosis delirium tremens Pertinent Medical Hx/Surgical Hx HTN, alcohol abuse Subjective Information Consult received for BS 196 at admission. pt seen sitting up in bed having lunch at time of visit, alert. Pt stated her appetite has been improved. Per EMR, PO intake 50-75%. Pt likes milk. Pt expressed concern about her weight. Pt was aware of underweight. Current Diet Order/ Nutrition Support low sodium Pertinent Medications D5-0.9%ns, multivitamins/ minerals/thiamine/magnesium/ folic acid Pertinent Labs 12/29 Glucose 133 (trending down) 12/28 Na 126, Cl 92, Cr 0.5, glucose 196 Nutritional Hx/Data Height 1.55 m Height (Calculated Centimeters) 154.9 Current Weight (lbs) 37.195 kg Weight (Calculated Kilograms) 37.2 Weight (Calculated Grams) 35788.6 [place] Body Weight 105 Body Mass Index (BMI) 15.5 Weight Status Underweight GI Symptoms GI Symptoms None Last BM not indicated Difficult in: None Usual diet at home per pt, poor food intake before admission d/t alcohol abuse. Skin Integrity/Comment: intact Current %PO Fair (50-74%) Estimated Nutritional Goals BEE in Kcals: Using Current wt Calories/Kcals/Kg 30-35 Kcals Calculated 1315-7165 Protein: Using Current wt Protein g/k.2-1.4 Protein Calculated 44-52 Fluid: ml 1110-1295ml (1ml/kcal) Nutritional Problem 1. Problem Problem inadeuqate food intake Etiology alcohol abuse Signs/Symptoms: BMI 15.5 - underweight Malnutrition Alert Body Fat Depletion (Non-Severe) Mild Depletion Malnutrition Related to Morbid Obesity Malnutrition related to morbid obesity No Intervention/Recommendation Comments 1. Continue with low sodium diet as ordered. Encouraged oral intake, adding snacks between meals, protein food intake. pt verbalized understand. 2. Monitor PO intake, wt, labs and skin integrity 3. F/U as moderate risk in 3-5 days, 01/01-01/03 Expected Outcomes/Goals Expected Outcomes/Goals 1. PO intake to meet at least 75% of nutritional needs. 2. Wt stability, skin to remain intact, labs to approach WNL.
[2018-01-01] MEDS: D5-0.9%NS 1,000 ML IV SCH ×3 (02:36→17:33)
[2018-01-01 05:40] LABS: % BASOPHILS 0.4 % (0.0-2.0); % EOSINOPHILS 0.8 % (0.0-5.0); % LYMPHOCYTES 29.7 % (20.0-50.0); % MONOCYTES 14.5 % (2.0-10.0); % NEUTROPHILS 54.6 % (40.0-80.0); HEMATOCRIT 33.9 % (41.0-60); HEMOGLOBIN 11.8 gm/dL (12-16); LYMPHOCYTE ABSOLUTE 1.5 Th/cmm (1.5-3.0); MEAN CELL VOLUME 100.4 fl (81-100); MEAN CORPUSCULAR HEMOGLOBIN 34.9 pg (27.0-31.0); MEAN CORPUSCULAR HGB CONC 34.8 pg (28.0-36.0); MEAN PLATELET VOLUME 7.9 fl; MONOCYTE ABSOLUTE 0.8 Th/cmm (0.3-1.0); NEUTROPHILE ABSOLUTE 2.9 Th/cmm (1.8-8.0); PLATELET COUNT 187 Th/cmm (150-400); RED BLOOD COUNT 3.38 Mil/cmm (3.80-5.10); RED CELL DISTRIBUTION WIDTH 16.3 % (11.5-20.0); WHITE BLOOD COUNT 5.2 Th/cmm (4.8-10.8)
[2018-01-01] MEDS: Diltiazem 30 mg Tab PO SCH ×3 (06:28→17:36)
--- NOTE | 2018-01-01 14:04 | General Progress Note ---
Subjective - Review of Systems Service Date: 01/01/18 Subjective: alert, feels better, less anxious, no tremors, somewhat depressed Objective - Results Result Diagrams: 01/01/18 04:50 12/30/17 04:35 Recent Labs: Laboratory Last Values WBC 5.2 Th/cmm (4.8-10.8) D 01/01/18 04:50 RBC 3.38 Mil/cmm (3.80-5.10) L 01/01/18 04:50 Hgb 11.8 gm/dL (12-16) L 01/01/18 04:50 Hct 33.9 % (41.0-60) L 01/01/18 04:50 MCV 100.4 fl (81-100) H 01/01/18 04:50 MCH 34.9 pg (27.0-31.0) H 01/01/18 04:50 MCHC Differential 34.8 pg (28.0-36.0) 01/01/18 04:50 RDW 16.3 % (11.5-20.0) 01/01/18 04:50 Plt Count 187 Th/cmm (150-400) 01/01/18 04:50 MPV 7.9 fl 01/01/18 04:50 Neutrophils % 54.6 % (40.0-80.0) 01/01/18 04:50 Lymphocytes % 29.7 % (20.0-50.0) 01/01/18 04:50 Monocytes % 14.5 % (2.0-10.0) H 01/01/18 04:50 Eosinophils % 0.8 % (0.0-5.0) 01/01/18 04:50 Basophils % 0.4 % (0.0-2.0) 01/01/18 04:50 PT 8.9 SECONDS (9.5-11.5) L 12/28/17 09:35 INR < 0.90 (0.5-1.4) 12/28/17 09:35 D-Dimer 970 ng/mL (100-400) H 12/28/17 07:55 Sodium 139 mEq/L (136-145) 12/30/17 04:35 Potassium 4.1 mEq/L (3.5-5.1) 12/30/17 04:35 Chloride 111 mEq/L (98-107) H 12/30/17 04:35 Carbon Dioxide 23.3 mEq/L (21.0-31.0) 12/30/17 04:35 Anion Gap 8.8 (7.0-16.0) 12/30/17 04:35 BUN 11 mg/dL (7-25) 12/30/17 04:35 Creatinine 0.6 mg/dL (0.6-1.2) 12/30/17 04:35 Est GFR ( Amer) > 60.0 ml/min (>90) 12/30/17 04:35 Est GFR (Non-Af Amer) > 60.0 ml/min 12/30/17 04:35 BUN/Creatinine Ratio 18.3 12/30/17 04:35 Glucose 107 mg/dL (70-105) H 12/30/17 04:35 Plasma/Ser Osmolality 281 mOsmol/kg (275-295) 12/29/17 04:45 Uric Acid 4.4 mg/dL (2.3-6.6) 12/29/17 04:45 Calcium 8.8 mg/dL (8.6-10.3) 12/30/17 04:35 Phosphorus 3.4 mg/dL (2.5-5.0) 12/29/17 04:45 Magnesium 2.7 mg/dL (1.9-2.7) 12/29/17 04:45 Total Bilirubin 0.4 mg/dL (0.3-1.0) 12/28/17 07:55 AST 53 U/L (13-39) H 12/28/17 07:55 ALT 28 U/L (7-52) 12/28/17 07:55 Alkaline Phosphatase 96 U/L (34-104) 12/28/17 07:55 Creatine Kinase 46 U/L (30-223) 12/28/17 07:55 Troponin I 0.01 ng/mL (0.01-0.05) 12/28/17 07:55 B-Natriuretic Peptide 21.4 pg/mL (5.0-100.0) 12/28/17 07:55 Total Protein 6.1 gm/dL (6.0-8.3) 12/28/17 07:55 Albumin 4.1 gm/dL (3.7-5.3) 12/28/17 07:55 Globulin 2.0 gm/dL 12/28/17 07:55 Albumin/Globulin Ratio 2.1 (1.0-1.8) H 12/28/17 07:55 Triglycerides 401 mg/dL (<150) H 12/28/17 07:55 Cholesterol 181 mg/dL (<200) 12/28/17 07:55 LDL Cholesterol Direct 36 mg/dL (75-193) L 12/28/17 07:55 HDL Cholesterol 81 mg/dL (23-92) 12/28/17 07:55 Amylase 27 U/L (29-103) L 12/28/17 07:55 Lipase 26 U/L (11-82) 12/28/17 07:55 TSH 2.68 uIU/ml (0.34-5.60) 12/29/17 04:45 Urine Source RANDOM 12/28/17 08:10 Urine Color YELLOW 12/28/17 08:10 Urine Clarity CLEAR (CLEAR) 12/28/17 08:10 Urine pH 6.0 (4.6 - 8.0) 12/28/17 08:10 Ur Specific [place] 1.020 (1.005-1.030) 12/28/17 08:10 Urine Protein NEGATIVE mg/dL (NEGATIVE) 12/28/17 08:10 Urine Glucose (UA) NEGATIVE mg/dL (NEGATIVE) 12/28/17 08:10 Urine Ketones 15 mg/dL (NEGATIVE) H 12/28/17 08:10 Urine Blood NEGATIVE (NEGATIVE) 12/28/17 08:10 Urine Nitrate NEGATIVE (NEGATIVE) 12/28/17 08:10 Urine Bilirubin NEGATIVE (NEGATIVE) 12/28/17 08:10 Urine Urobilinogen 0.2 E.U./dL (0.2 - 1.0) 12/28/17 08:10 Ur Leukocyte Esterase NEGATIVE (NEGATIVE) 12/28/17 08:10 Urine Test NEGATIVE 12/28/17 06:00 Salicylates < 25.0 mg/L (30.0-100.0) L 12/28/17 07:55 Urine Opiates Screen NEGATIVE (NEGATIVE) 12/28/17 06:00 Urine Methadone Screen NEGATIVE (NEGATIVE) 12/28/17 06:00 Acetaminophen < 10.0 ug/mL (10.0-30.0) L 12/28/17 07:55 Ur Barbiturates Screen NEGATIVE (NEGATIVE) 12/28/17 06:00 Ur Tricyclics Screen NEGATIVE (NEGATIVE) 12/28/17 06:00 Ur Phencyclidine Scrn NEGATIVE (NEGATIVE) 12/28/17 06:00 Amphetamines Screen NEGATIVE (NEGATIVE) 12/28/17 06:00 U Methamphetamines Scrn NEGATIVE (NEGATIVE) 12/28/17 06:00 U Benzodiazepines Scrn NEGATIVE (NEGATIVE) 12/28/17 06:00 U Cocaine Metab Screen NEGATIVE (NEGATIVE) 12/28/17 06:00 U Cannabinoids Screen POSITIVE (NEGATIVE) H 12/28/17 06:00 Ethyl Alcohol < 10 mg/dL (0-10) 12/28/17 07:55 - Physical Exam Vitals and I&O: Vital Signs Temp 97.4 F 01/01/18 11:50 Pulse 87 01/01/18 12:56 Resp 18 01/01/18 11:50 BP 117/72 01/01/18 11:50 Pulse Ox 99 01/01/18 11:50 Intake & Output 12/31/17 01/01/18 01/01/18 18:59 06:59 18:59 Intake Total 1685.333 985.333 Balance 1685.333 985.333 Weight (lbs) 40.823 kg 39.689 kg Intake: Intake, IV Amount 885.333 985.333 D5-0.9%Ns 1,000 ml @ 80 885.333 985.333 mls/hr IV .[id number] [facility] Rx #:[id number] Oral 800 Other: # Voids 6 # Bowel Movements 2 Stool Characteristics Soft Formed Weight Source Bedscale Bedscale Active Medications: Current Medications Atenolol (Tenormin) 25 mg PO DAILY [facility] Stop: 02/27/18 08:59 Last Admin: 12/31/17 08:13 Dose: Not Given Chlordiazepoxide (Librium) 25 mg PO BID [facility]; Protocol Stop: 03/01/18 16:59 Last Admin: 01/01/18 08:35 Dose: 25 mg Citalopram Hydrobromide (Celexa) 20 mg PO DAILY [facility]; Protocol Stop: 02/27/18 11:59 Last Admin: 01/01/18 08:34 Dose: 20 mg Diltiazem HCl (Cardizem) 60 mg PO Q6HR [facility] Stop: 02/26/18 17:59 Last Admin: 01/01/18 12:56 Dose: 60 mg Gabapentin (Neurontin) 300 mg PO DAILY [facility] Stop: 02/27/18 08:59 Last Admin: 01/01/18 08:35 Dose: 300 mg Dextrose/Sodium Chloride (D5-0.9%Ns) 1,000 mls @ 80 mls/hr IV .[id number] [facility] Stop: 02/26/18 10:59 Last Admin: 01/01/18 05:23 Dose: 80 mls/hr Temazepam (Restoril) 15 mg PO HS PRN; Protocol PRN Reason: Insomnia Stop: 02/26/18 15:05 Last Admin: 12/31/17 23:26 Dose: 15 mg General: Alert, Oriented x3, No acute distress HEENT: Atraumatic, PERRLA, Mucous membr. moist/pink Neck: Supple, +2 carotid pulse wo bruit Cardiovascular: Regular rate, Normal S1, Normal S2 Lungs: Clear to auscultation Abdomen: Bowel sounds, Soft Extremities: no Edema Neurological: Sensation intact Skin: no Rash Psych/Mental Status: Mood NL Assessment/Plan - Assessment Assessment: Hyponatremia DT'S Tachy resolved Malnutrition Anxiety/Depression Neuropathy Ess Htn Drug abuse ( alcohol/Cannabinoids) - Plan Plan: Lab - Result Diagrams 12/29/17 04:45 12/29/17 04:45 Current Medications Atenolol (Tenormin) 25 mg PO DAILY [facility] Stop: 02/27/18 08:59 Last Admin: 12/29/17 08:23 Dose: 25 mg Chlordiazepoxide (Librium) 25 mg PO TID [facility]; Protocol Stop: 02/26/18 15:52 Last Admin: 12/29/17 13:22 Dose: 25 mg Citalopram Hydrobromide (Celexa) 20 mg PO DAILY [facility]; Protocol Stop: 02/27/18 11:59 Last Admin: 12/29/17 11:41 Dose: 20 mg Diltiazem HCl (Cardizem) 60 mg PO Q6HR [facility] Stop: 02/26/18 17:59 Last Admin: 12/29/17 11:42 Dose: Not Given Gabapentin (Neurontin) 300 mg PO DAILY [facility] Stop: 02/27/18 08:59 Last Admin: 12/29/17 08:23 Dose: 300 mg Multivitamins/Minerals 10 ml/Thiamine HCl 100 mg/ Magnesium Sulfate 2 gm/ Folic Acid 1 mg / Sodium Chloride 1,015.2 mls @ 80 mls/hr IV Q24H [facility] Stop: 02/26/18 15:59 Last Infusion: 12/29/17 05:30 Dose: Infused Dextrose/Sodium Chloride (D5-0.9%Ns) 1,000 mls @ 80 mls/hr IV .[id number] [facility] Stop: 02/26/18 10:59 Last Infusion: 12/29/17 05:52 Dose: 80 mls/hr Temazepam (Restoril) 15 mg PO HS PRN; Protocol PRN Reason: Insomnia Stop: 02/26/18 15:05 Last Admin: 12/28/17 21:33 Dose: 15 mg Lab - Result Diagrams 01/01/18 04:50 12/30/17 04:35 continue IVF monitor electrolytes no more tremors Nutritional Asmnt/Malnutr-PDOC - Dietary Evaluation Malnutrition Findings (Please click <Entered> for more info): Nutritional Asmnt/Malnutrition Start: 12/29/17 14: 44 Text: Status: Complete Freq: Protocol: Document 12/29/17 14:44 LCHENG (Rec: 12/29/17 14:58 [place] [email or web address]) Nutritional Asmnt/Malnutrition Patient General Information Nutritional Screening High Risk Diagnosis delirium tremens Pertinent Medical Hx/Surgical Hx HTN, alcohol abuse Subjective Information Consult received for BS 196 at admission. pt seen sitting up in bed having lunch at time of visit, alert. Pt stated her appetite has been improved. Per EMR, PO intake 50-75%. Pt likes milk. Pt expressed concern about her weight. Pt was aware of underweight. Current Diet Order/ Nutrition Support low sodium Pertinent Medications D5-0.9%ns, multivitamins/ minerals/thiamine/magnesium/ folic acid Pertinent Labs 12/29 Glucose 133 (trending down) 12/28 Na 126, Cl 92, Cr 0.5, glucose 196 Nutritional Hx/Data Height 1.55 m Height (Calculated Centimeters) 154.9 Current Weight (lbs) 37.195 kg Weight (Calculated Kilograms) 37.2 Weight (Calculated Grams) 83787.6 [place] Body Weight 105 Body Mass Index (BMI) 15.5 Weight Status Underweight GI Symptoms GI Symptoms None Last BM not indicated Difficult in: None Usual diet at home per pt, poor food intake before admission d/t alcohol abuse. Skin Integrity/Comment: intact Current %PO Fair (50-74%) Estimated Nutritional Goals BEE in Kcals: Using Current wt Calories/Kcals/Kg 30-35 Kcals Calculated 6207-5010 Protein: Using Current wt Protein g/k.2-1.4 Protein Calculated 44-52 Fluid: ml 1110-1295ml (1ml/kcal) Nutritional Problem 1. Problem Problem inadeuqate food intake Etiology alcohol abuse Signs/Symptoms: BMI 15.5 - underweight Malnutrition Alert Body Fat Depletion (Non-Severe) Mild Depletion Malnutrition Related to Morbid Obesity Malnutrition related to morbid obesity No Intervention/Recommendation Comments 1. Continue with low sodium diet as ordered. Encouraged oral intake, adding snacks between meals, protein food intake. pt verbalized understand. 2. Monitor PO intake, wt, labs and skin integrity 3. F/U as moderate risk in 3-5 days, 01/01-01/03 Expected Outcomes/Goals Expected Outcomes/Goals 1. PO intake to meet at least 75% of nutritional needs. 2. Wt stability, skin to remain intact, labs to approach WNL.
[2018-01-02] MEDS: Diltiazem 30 mg Tab PO SCH ×2 (00:43→05:09)
--- NOTE | 2018-01-02 02:48 | Infectious Disease Prog Note ---
Infectious Disease Subjective - Review of Systems Service Date: 01/02/18 Subjective: Doing better, no tachycardia, no nausea. tremors present, Infectious Disease Objective - Results Result Diagrams: 01/01/18 04:50 12/30/17 04:35 Recent Labs: Laboratory Last Values WBC 5.2 Th/cmm (4.8-10.8) D 01/01/18 04:50 RBC 3.38 Mil/cmm (3.80-5.10) L 01/01/18 04:50 Hgb 11.8 gm/dL (12-16) L 01/01/18 04:50 Hct 33.9 % (41.0-60) L 01/01/18 04:50 MCV 100.4 fl (81-100) H 01/01/18 04:50 MCH 34.9 pg (27.0-31.0) H 01/01/18 04:50 MCHC Differential 34.8 pg (28.0-36.0) 01/01/18 04:50 RDW 16.3 % (11.5-20.0) 01/01/18 04:50 Plt Count 187 Th/cmm (150-400) 01/01/18 04:50 MPV 7.9 fl 01/01/18 04:50 Neutrophils % 54.6 % (40.0-80.0) 01/01/18 04:50 Lymphocytes % 29.7 % (20.0-50.0) 01/01/18 04:50 Monocytes % 14.5 % (2.0-10.0) H 01/01/18 04:50 Eosinophils % 0.8 % (0.0-5.0) 01/01/18 04:50 Basophils % 0.4 % (0.0-2.0) 01/01/18 04:50 PT 8.9 SECONDS (9.5-11.5) L 12/28/17 09:35 INR < 0.90 (0.5-1.4) 12/28/17 09:35 D-Dimer 970 ng/mL (100-400) H 12/28/17 07:55 Sodium 139 mEq/L (136-145) 12/30/17 04:35 Potassium 4.1 mEq/L (3.5-5.1) 12/30/17 04:35 Chloride 111 mEq/L (98-107) H 12/30/17 04:35 Carbon Dioxide 23.3 mEq/L (21.0-31.0) 12/30/17 04:35 Anion Gap 8.8 (7.0-16.0) 12/30/17 04:35 BUN 11 mg/dL (7-25) 12/30/17 04:35 Creatinine 0.6 mg/dL (0.6-1.2) 12/30/17 04:35 Est GFR ( Amer) > 60.0 ml/min (>90) 12/30/17 04:35 Est GFR (Non-Af Amer) > 60.0 ml/min 12/30/17 04:35 BUN/Creatinine Ratio 18.3 12/30/17 04:35 Glucose 107 mg/dL (70-105) H 12/30/17 04:35 Plasma/Ser Osmolality 281 mOsmol/kg (275-295) 12/29/17 04:45 Uric Acid 4.4 mg/dL (2.3-6.6) 12/29/17 04:45 Calcium 8.8 mg/dL (8.6-10.3) 12/30/17 04:35 Phosphorus 3.4 mg/dL (2.5-5.0) 12/29/17 04:45 Magnesium 2.7 mg/dL (1.9-2.7) 12/29/17 04:45 Total Bilirubin 0.4 mg/dL (0.3-1.0) 12/28/17 07:55 AST 53 U/L (13-39) H 12/28/17 07:55 ALT 28 U/L (7-52) 12/28/17 07:55 Alkaline Phosphatase 96 U/L (34-104) 12/28/17 07:55 Creatine Kinase 46 U/L (30-223) 12/28/17 07:55 Troponin I 0.01 ng/mL (0.01-0.05) 12/28/17 07:55 B-Natriuretic Peptide 21.4 pg/mL (5.0-100.0) 12/28/17 07:55 Total Protein 6.1 gm/dL (6.0-8.3) 12/28/17 07:55 Albumin 4.1 gm/dL (3.7-5.3) 12/28/17 07:55 Globulin 2.0 gm/dL 12/28/17 07:55 Albumin/Globulin Ratio 2.1 (1.0-1.8) H 12/28/17 07:55 Triglycerides 401 mg/dL (<150) H 12/28/17 07:55 Cholesterol 181 mg/dL (<200) 12/28/17 07:55 LDL Cholesterol Direct 36 mg/dL (75-193) L 12/28/17 07:55 HDL Cholesterol 81 mg/dL (23-92) 12/28/17 07:55 Amylase 27 U/L (29-103) L 12/28/17 07:55 Lipase 26 U/L (11-82) 12/28/17 07:55 TSH 2.68 uIU/ml (0.34-5.60) 12/29/17 04:45 Urine Source RANDOM 12/28/17 08:10 Urine Color YELLOW 12/28/17 08:10 Urine Clarity CLEAR (CLEAR) 12/28/17 08:10 Urine pH 6.0 (4.6 - 8.0) 12/28/17 08:10 Ur Specific [place] 1.020 (1.005-1.030) 12/28/17 08:10 Urine Protein NEGATIVE mg/dL (NEGATIVE) 12/28/17 08:10 Urine Glucose (UA) NEGATIVE mg/dL (NEGATIVE) 12/28/17 08:10 Urine Ketones 15 mg/dL (NEGATIVE) H 12/28/17 08:10 Urine Blood NEGATIVE (NEGATIVE) 12/28/17 08:10 Urine Nitrate NEGATIVE (NEGATIVE) 12/28/17 08:10 Urine Bilirubin NEGATIVE (NEGATIVE) 12/28/17 08:10 Urine Urobilinogen 0.2 E.U./dL (0.2 - 1.0) 12/28/17 08:10 Ur Leukocyte Esterase NEGATIVE (NEGATIVE) 12/28/17 08:10 Urine Test NEGATIVE 12/28/17 06:00 Salicylates < 25.0 mg/L (30.0-100.0) L 12/28/17 07:55 Urine Opiates Screen NEGATIVE (NEGATIVE) 12/28/17 06:00 Urine Methadone Screen NEGATIVE (NEGATIVE) 12/28/17 06:00 Acetaminophen < 10.0 ug/mL (10.0-30.0) L 12/28/17 07:55 Ur Barbiturates Screen NEGATIVE (NEGATIVE) 12/28/17 06:00 Ur Tricyclics Screen NEGATIVE (NEGATIVE) 12/28/17 06:00 Ur Phencyclidine Scrn NEGATIVE (NEGATIVE) 12/28/17 06:00 Amphetamines Screen NEGATIVE (NEGATIVE) 12/28/17 06:00 U Methamphetamines Scrn NEGATIVE (NEGATIVE) 12/28/17 06:00 U Benzodiazepines Scrn NEGATIVE (NEGATIVE) 12/28/17 06:00 U Cocaine Metab Screen NEGATIVE (NEGATIVE) 12/28/17 06:00 U Cannabinoids Screen POSITIVE (NEGATIVE) H 12/28/17 06:00 Ethyl Alcohol < 10 mg/dL (0-10) 12/28/17 07:55 - Physical Exam Vitals and I&O: Vital Signs Temp 98.4 F 01/01/18 19:00 Pulse 90 01/02/18 00:43 Resp 18 01/01/18 20:00 BP 91/73 01/01/18 19:00 Pulse Ox 99 01/01/18 19:00 Intake & Output 01/01/18 01/01/18 01/02/18 06:59 18:59 06:59 Intake Total 985.333 973.333 Balance 985.333 973.333 Weight (lbs) 39.689 kg Intake: Intake, IV Amount 985.333 973.333 D5-0.9%Ns 1,000 ml @ 80 985.333 973.333 mls/hr IV .[id number] [facility] Rx #:[id number] Other: Stool Characteristics Soft Formed Weight Source Bedscale Active Medications: Current Medications Atenolol (Tenormin) 25 mg PO DAILY [facility] Stop: 02/27/18 08:59 Last Admin: 01/01/18 14:45 Dose: Not Given Citalopram Hydrobromide (Celexa) 20 mg PO DAILY [facility]; Protocol Stop: 02/27/18 11:59 Last Admin: 01/01/18 08:34 Dose: 20 mg Diltiazem HCl (Cardizem) 60 mg PO Q6HR [facility] Stop: 02/26/18 17:59 Last Admin: 01/02/18 00:43 Dose: 60 mg Gabapentin (Neurontin) 300 mg PO DAILY [facility] Stop: 02/27/18 08:59 Last Admin: 01/01/18 08:35 Dose: 300 mg Dextrose/Sodium Chloride (D5-0.9%Ns) 1,000 mls @ 80 mls/hr IV .[id number] [facility] Stop: 02/26/18 10:59 Last Admin: 01/01/18 17:33 Dose: 80 mls/hr Temazepam (Restoril) 15 mg PO HS PRN; Protocol PRN Reason: Insomnia Stop: 02/26/18 15:05 Last Admin: 01/01/18 21:05 Dose: 15 mg General: no acute distress, well developed, well nourished HEENT: atraumatic, normocephalic, PERRLA Neck: supple, no thyromegaly Cardiovascular: S1S2, regular Lungs: clear to auscultation bilaterally, clear to percussion Abdomen: soft, no tender, no distended, no mass Extremities: no cyanosis, no clubbing, no edema Neurological: no awake, no alert, no oriented Skin: intact Infectious Disease Assmt/Plan - Assessment Assessment: 1. Nausea, vomiting, diarrhea, maybe symptoms of gastroenteritis versus may have alcohol withdrawal. Delirium tremens. Improving. 2. Suspect delirium tremens. 3. Hypertension, which seems new or part of DT. 4. Tachycardia. Improved/ 5. Anxiety disorder. 6. Hyponatremia. improved. - Plan Plan: dc librium in am. dc patietn home. patient has contacted detox unit, and willing to go there tomorrow ( 01/02/2018) . Nutritional Asmnt/Malnutr-PDOC - Dietary Evaluation Malnutrition Findings (Please click <Entered> for more info): Nutritional Asmnt/Malnutrition Start: 12/29/17 14: 44 Text: Status: Complete Freq: Protocol: Document 12/29/17 14:44 LCHENG (Rec: 12/29/17 14:58 [email or web address]) Nutritional Asmnt/Malnutrition Patient General Information Nutritional Screening High Risk Diagnosis delirium tremens Pertinent Medical Hx/Surgical Hx HTN, alcohol abuse Subjective Information Consult received for BS 196 at admission. pt seen sitting up in bed having lunch at time of visit, alert. Pt stated her appetite has been improved. Per EMR, PO intake 50-75%. Pt likes milk. Pt expressed concern about her weight. Pt was aware of underweight. Current Diet Order/ Nutrition Support low sodium Pertinent Medications D5-0.9%ns, multivitamins/ minerals/thiamine/magnesium/ folic acid Pertinent Labs 12/29 Glucose 133 (trending down) 12/28 Na 126, Cl 92, Cr 0.5, glucose 196 Nutritional Hx/Data Height 1.55 m Height (Calculated Centimeters) 154.9 Current Weight (lbs) 37.195 kg Weight (Calculated Kilograms) 37.2 Weight (Calculated Grams) 92384.6 [place] Body Weight 105 Body Mass Index (BMI) 15.5 Weight Status Underweight GI Symptoms GI Symptoms None Last BM not indicated Difficult in: None Usual diet at home per pt, poor food intake before admission d/t alcohol abuse. Skin Integrity/Comment: intact Current %PO Fair (50-74%) Estimated Nutritional Goals BEE in Kcals: Using Current wt Calories/Kcals/Kg 30-35 Kcals Calculated 2571-4577 Protein: Using Current wt Protein g/k.2-1.4 Protein Calculated 44-52 Fluid: ml 1110-1295ml (1ml/kcal) Nutritional Problem 1. Problem Problem inadeuqate food intake Etiology alcohol abuse Signs/Symptoms: BMI 15.5 - underweight Malnutrition Alert Body Fat Depletion (Non-Severe) Mild Depletion Malnutrition Related to Morbid Obesity Malnutrition related to morbid obesity No Intervention/Recommendation Comments 1. Continue with low sodium diet as ordered. Encouraged oral intake, adding snacks between meals, protein food intake. pt verbalized understand. 2. Monitor PO intake, wt, labs and skin integrity 3. F/U as moderate risk in 3-5 days, 01/01-01/03 Expected Outcomes/Goals Expected Outcomes/Goals 1. PO intake to meet at least 75% of nutritional needs. 2. Wt stability, skin to remain intact, labs to approach WNL.
--- NOTE | 2018-01-02 03:42 | Operative Report ---
DATE OF SURGERY: 01/02/2018 CHIEF COMPLAINT: Nausea, vomiting, anxiety, nervousness, diarrhea for last 3-4 days. HISTORY OF PRESENT ILLNESS AND HOSPITAL COURSE: The patient is 62-year-old female with past medical history of alcohol abuse, recently went to [facility] on 12/23/2017. Same day, she was discharged home, although she had some tachycardia at that time. She came back again for some anxiety, nervousness, nausea, vomiting and diarrhea for last 3-4 days. She stated she took her last alcohol 12 hours prior to presentation to the ER. The patient denies any loss of consciousness. The patient denies any fever; however, the patient found to have tachycardia and high blood pressure. She denied a diagnosis of hypertensive before. The patient suspected to have delirium tremens as the patient's alcohol level was less than 10. She had few symptoms of above said diagnosis. The patient admitted to the ICU, started on IV fluid, given Librium. For her high blood pressure, the patient was started on atenolol. She did well. She still has tremors of the hand, which is chronic. Multiple consultations called including Dr. Burns for hyponatremia, Dr. Ng [facility] for hypertension and Dr. Velasco for alcohol abuse and delirium tremens, anxiety. So far, the patient is doing better, now more stable. Ready for discharge. DISCHARGE DIAGNOSES: 1. Hyponatremia, nausea, vomiting, diarrhea. May have symptoms of gastroenteritis versus alcohol withdrawal. 2. Delirium tremens. 3. Hypertension. 4. Tachycardia. 5. Anxiety disorder. 6. History of alcohol abuse. DISCHARGE PLAN. The patient is going to follow with detox unit. Otherwise, the patient is tapered on Librium now. The patient has a history of banana bag. Continue her medication and follow up with her primary care physician, Dr. Swanson. DISCHARGE CONDITION: Stable. [facility]# [id number]
[2018-01-02] MEDS: D5-0.9%NS 1,000 ML IV SCH (03:51)
[2018-01-02 06:30] LABS: HEMATOCRIT 35.5 % (41.0-60); HEMOGLOBIN 12.2 gm/dL (12-16); MEAN CELL VOLUME 100.6 fl (81-100); MEAN CORPUSCULAR HEMOGLOBIN 34.6 pg (27.0-31.0); MEAN CORPUSCULAR HGB CONC 34.4 pg (28.0-36.0); MEAN PLATELET VOLUME 8.3 fl; PLATELET COUNT 192 Th/cmm (150-400); RED BLOOD COUNT 3.53 Mil/cmm (3.80-5.10); RED CELL DISTRIBUTION WIDTH 16.2 % (11.5-20.0); WHITE BLOOD COUNT 5.2 Th/cmm (4.8-10.8)
[2018-01-02 08:14] LABS: BAND NEUTROPHILE 0 % (0-10); BASOPHIL 0 % (0-3); EOSINOPHIL 2 % (0-5); LYMPHOCYTE 28 % (20-50); MONOCYTE 15 % (2-10); NEUTROPHILS 55 % (40-80)
--- NOTE | 2018-01-02 11:40 | General Progress Note ---
Subjective - Review of Systems Service Date: 01/02/18 Subjective: alert, feels better, less anxious, no tremors, somewhat depressed Objective - Results Result Diagrams: 01/02/18 05:00 12/30/17 04:35 Recent Labs: Laboratory Last Values WBC 5.2 Th/cmm (4.8-10.8) 01/02/18 05:00 RBC 3.53 Mil/cmm (3.80-5.10) L 01/02/18 05:00 Hgb 12.2 gm/dL (12-16) 01/02/18 05:00 Hct 35.5 % (41.0-60) L 01/02/18 05:00 MCV 100.6 fl (81-100) H 01/02/18 05:00 MCH 34.6 pg (27.0-31.0) H 01/02/18 05:00 MCHC Differential 34.4 pg (28.0-36.0) 01/02/18 05:00 RDW 16.2 % (11.5-20.0) 01/02/18 05:00 Plt Count 192 Th/cmm (150-400) 01/02/18 05:00 MPV 8.3 fl 01/02/18 05:00 Add Manual Diff YES 01/02/18 05:00 Neutrophils % 54.6 % (40.0-80.0) 01/01/18 04:50 Band Neutrophils % 0 % (0-10) 01/02/18 05:00 Lymphocytes % 29.7 % (20.0-50.0) 01/01/18 04:50 Monocytes % 14.5 % (2.0-10.0) H 01/01/18 04:50 Eosinophils % 0.8 % (0.0-5.0) 01/01/18 04:50 Basophils % 0.4 % (0.0-2.0) 01/01/18 04:50 Neutrophils (Manual) 55 % (40-80) 01/02/18 05:00 Lymphocytes 28 % (20-50) 01/02/18 05:00 Monocytes 15 % (2-10) H 01/02/18 05:00 Eosinophils 2 % (0-5) 01/02/18 05:00 Basophils 0 % (0-3) 01/02/18 05:00 PT 8.9 SECONDS (9.5-11.5) L 12/28/17 09:35 INR < 0.90 (0.5-1.4) 12/28/17 09:35 D-Dimer 970 ng/mL (100-400) H 12/28/17 07:55 Sodium 139 mEq/L (136-145) 12/30/17 04:35 Potassium 4.1 mEq/L (3.5-5.1) 12/30/17 04:35 Chloride 111 mEq/L (98-107) H 12/30/17 04:35 Carbon Dioxide 23.3 mEq/L (21.0-31.0) 12/30/17 04:35 Anion Gap 8.8 (7.0-16.0) 12/30/17 04:35 BUN 11 mg/dL (7-25) 12/30/17 04:35 Creatinine 0.6 mg/dL (0.6-1.2) 12/30/17 04:35 Est GFR ( Amer) > 60.0 ml/min (>90) 12/30/17 04:35 Est GFR (Non-Af Amer) > 60.0 ml/min 12/30/17 04:35 BUN/Creatinine Ratio 18.3 12/30/17 04:35 Glucose 107 mg/dL (70-105) H 12/30/17 04:35 Plasma/Ser Osmolality 281 mOsmol/kg (275-295) 12/29/17 04:45 Uric Acid 4.4 mg/dL (2.3-6.6) 12/29/17 04:45 Calcium 8.8 mg/dL (8.6-10.3) 12/30/17 04:35 Phosphorus 3.4 mg/dL (2.5-5.0) 12/29/17 04:45 Magnesium 2.7 mg/dL (1.9-2.7) 12/29/17 04:45 Total Bilirubin 0.4 mg/dL (0.3-1.0) 12/28/17 07:55 AST 53 U/L (13-39) H 12/28/17 07:55 ALT 28 U/L (7-52) 12/28/17 07:55 Alkaline Phosphatase 96 U/L (34-104) 12/28/17 07:55 Creatine Kinase 46 U/L (30-223) 12/28/17 07:55 Troponin I 0.01 ng/mL (0.01-0.05) 12/28/17 07:55 B-Natriuretic Peptide 21.4 pg/mL (5.0-100.0) 12/28/17 07:55 Total Protein 6.1 gm/dL (6.0-8.3) 12/28/17 07:55 Albumin 4.1 gm/dL (3.7-5.3) 12/28/17 07:55 Globulin 2.0 gm/dL 12/28/17 07:55 Albumin/Globulin Ratio 2.1 (1.0-1.8) H 12/28/17 07:55 Triglycerides 401 mg/dL (<150) H 12/28/17 07:55 Cholesterol 181 mg/dL (<200) 12/28/17 07:55 LDL Cholesterol Direct 36 mg/dL (75-193) L 12/28/17 07:55 HDL Cholesterol 81 mg/dL (23-92) 12/28/17 07:55 Amylase 27 U/L (29-103) L 12/28/17 07:55 Lipase 26 U/L (11-82) 12/28/17 07:55 TSH 2.68 uIU/ml (0.34-5.60) 12/29/17 04:45 Urine Source RANDOM 12/28/17 08:10 Urine Color YELLOW 12/28/17 08:10 Urine Clarity CLEAR (CLEAR) 12/28/17 08:10 Urine pH 6.0 (4.6 - 8.0) 12/28/17 08:10 Ur Specific [place] 1.020 (1.005-1.030) 12/28/17 08:10 Urine Protein NEGATIVE mg/dL (NEGATIVE) 12/28/17 08:10 Urine Glucose (UA) NEGATIVE mg/dL (NEGATIVE) 12/28/17 08:10 Urine Ketones 15 mg/dL (NEGATIVE) H 12/28/17 08:10 Urine Blood NEGATIVE (NEGATIVE) 12/28/17 08:10 Urine Nitrate NEGATIVE (NEGATIVE) 12/28/17 08:10 Urine Bilirubin NEGATIVE (NEGATIVE) 12/28/17 08:10 Urine Urobilinogen 0.2 E.U./dL (0.2 - 1.0) 12/28/17 08:10 Ur Leukocyte Esterase NEGATIVE (NEGATIVE) 12/28/17 08:10 Urine Test NEGATIVE 12/28/17 06:00 Salicylates < 25.0 mg/L (30.0-100.0) L 12/28/17 07:55 Urine Opiates Screen NEGATIVE (NEGATIVE) 12/28/17 06:00 Urine Methadone Screen NEGATIVE (NEGATIVE) 12/28/17 06:00 Acetaminophen < 10.0 ug/mL (10.0-30.0) L 12/28/17 07:55 Ur Barbiturates Screen NEGATIVE (NEGATIVE) 12/28/17 06:00 Ur Tricyclics Screen NEGATIVE (NEGATIVE) 12/28/17 06:00 Ur Phencyclidine Scrn NEGATIVE (NEGATIVE) 12/28/17 06:00 Amphetamines Screen NEGATIVE (NEGATIVE) 12/28/17 06:00 U Methamphetamines Scrn NEGATIVE (NEGATIVE) 12/28/17 06:00 U Benzodiazepines Scrn NEGATIVE (NEGATIVE) 12/28/17 06:00 U Cocaine Metab Screen NEGATIVE (NEGATIVE) 12/28/17 06:00 U Cannabinoids Screen POSITIVE (NEGATIVE) H 12/28/17 06:00 Ethyl Alcohol < 10 mg/dL (0-10) 12/28/17 07:55 - Physical Exam Vitals and I&O: Vital Signs Temp 97.7 F 01/02/18 07:32 Pulse 94 01/02/18 08:46 Resp 18 01/02/18 07:32 BP 123/66 01/02/18 08:46 Pulse Ox 100 01/02/18 07:32 Intake & Output 01/01/18 01/02/18 01/02/18 18:59 06:59 18:59 Intake Total 973.333 Balance 973.333 Weight (lbs) 39.463 kg Intake: Intake, IV Amount 973.333 D5-0.9%Ns 1,000 ml @ 80 973.333 mls/hr IV .[id number] [facility] Rx #:[id number] Other: # Voids 2 Stool Characteristics Soft Formed Weight Source Bedscale Active Medications: Current Medications Atenolol (Tenormin) 25 mg PO DAILY [facility] Stop: 02/27/18 08:59 Last Admin: 01/02/18 08:46 Dose: 25 mg Citalopram Hydrobromide (Celexa) 20 mg PO DAILY [facility]; Protocol Stop: 02/27/18 11:59 Last Admin: 01/02/18 08:46 Dose: 20 mg Diltiazem HCl (Cardizem) 60 mg PO Q6HR [facility] Stop: 02/26/18 17:59 Last Admin: 01/02/18 05:09 Dose: 60 mg Gabapentin (Neurontin) 300 mg PO DAILY [facility] Stop: 02/27/18 08:59 Last Admin: 01/02/18 08:46 Dose: 300 mg Dextrose/Sodium Chloride (D5-0.9%Ns) 1,000 mls @ 80 mls/hr IV .[id number] [facility] Stop: 02/26/18 10:59 Last Admin: 01/02/18 03:51 Dose: Not Given Temazepam (Restoril) 15 mg PO HS PRN; Protocol PRN Reason: Insomnia Stop: 02/26/18 15:05 Last Admin: 01/01/18 21:05 Dose: 15 mg General: Alert, Oriented x3, No acute distress HEENT: Atraumatic, PERRLA, Mucous membr. moist/pink Neck: Supple, +2 carotid pulse wo bruit Cardiovascular: Regular rate, Normal S1, Normal S2 Lungs: Clear to auscultation Abdomen: Bowel sounds, Soft Extremities: no Edema Neurological: Sensation intact Skin: no Rash Psych/Mental Status: Mood NL Assessment/Plan - Assessment Assessment: Hyponatremia resolved DT'S Tachy resolved Malnutrition Anxiety/Depression Neuropathy Ess Htn Drug abuse ( alcohol/Cannabinoids) - Plan Plan: Lab - Result Diagrams 12/29/17 04:45 12/29/17 04:45 Current Medications Atenolol (Tenormin) 25 mg PO DAILY [facility] Stop: 02/27/18 08:59 Last Admin: 12/29/17 08:23 Dose: 25 mg Chlordiazepoxide (Librium) 25 mg PO TID [facility]; Protocol Stop: 02/26/18 15:52 Last Admin: 12/29/17 13:22 Dose: 25 mg Citalopram Hydrobromide (Celexa) 20 mg PO DAILY [facility]; Protocol Stop: 02/27/18 11:59 Last Admin: 12/29/17 11:41 Dose: 20 mg Diltiazem HCl (Cardizem) 60 mg PO Q6HR [facility] Stop: 02/26/18 17:59 Last Admin: 12/29/17 11:42 Dose: Not Given Gabapentin (Neurontin) 300 mg PO DAILY [facility] Stop: 02/27/18 08:59 Last Admin: 12/29/17 08:23 Dose: 300 mg Multivitamins/Minerals 10 ml/Thiamine HCl 100 mg/ Magnesium Sulfate 2 gm/ Folic Acid 1 mg / Sodium Chloride 1,015.2 mls @ 80 mls/hr IV Q24H [facility] Stop: 02/26/18 15:59 Last Infusion: 12/29/17 05:30 Dose: Infused Dextrose/Sodium Chloride (D5-0.9%Ns) 1,000 mls @ 80 mls/hr IV .[id number] [facility] Stop: 02/26/18 10:59 Last Infusion: 12/29/17 05:52 Dose: 80 mls/hr Temazepam (Restoril) 15 mg PO HS PRN; Protocol PRN Reason: Insomnia Stop: 02/26/18 15:05 Last Admin: 12/28/17 21:33 Dose: 15 mg Lab - Result Diagrams 01/01/18 04:50 12/30/17 04:35 DC IVF monitor electrolytes no more tremors Nutritional Asmnt/Malnutr-PDOC - Dietary Evaluation Malnutrition Findings (Please click <Entered> for more info): Nutritional Asmnt/Malnutrition Start: 12/29/17 14: 44 Text: Status: Complete Freq: Protocol: Document 12/29/17 14:44 LCHENG (Rec: 12/29/17 14:58 LCHENG [email or web address]) Nutritional Asmnt/Malnutrition Patient General Information Nutritional Screening High Risk Diagnosis delirium tremens Pertinent Medical Hx/Surgical Hx HTN, alcohol abuse Subjective Information Consult received for BS 196 at admission. pt seen sitting up in bed having lunch at time of visit, alert. Pt stated her appetite has been improved. Per EMR, PO intake 50-75%. Pt likes milk. Pt expressed concern about her weight. Pt was aware of underweight. Current Diet Order/ Nutrition Support low sodium Pertinent Medications D5-0.9%ns, multivitamins/ minerals/thiamine/magnesium/ folic acid Pertinent Labs 12/29 Glucose 133 (trending down) 12/28 Na 126, Cl 92, Cr 0.5, glucose 196 Nutritional Hx/Data Height 1.55 m Height (Calculated Centimeters) 154.9 Current Weight (lbs) 37.195 kg Weight (Calculated Kilograms) 37.2 Weight (Calculated Grams) 80673.6 [place] Body Weight 105 Body Mass Index (BMI) 15.5 Weight Status Underweight GI Symptoms GI Symptoms None Last BM not indicated Difficult in: None Usual diet at home per pt, poor food intake before admission d/t alcohol abuse. Skin Integrity/Comment: intact Current %PO Fair (50-74%) Estimated Nutritional Goals BEE in Kcals: Using Current wt Calories/Kcals/Kg 30-35 Kcals Calculated 6545-3997 Protein: Using Current wt Protein g/k.2-1.4 Protein Calculated 44-52 Fluid: ml 1110-1295ml (1ml/kcal) Nutritional Problem 1. Problem Problem inadeuqate food intake Etiology alcohol abuse Signs/Symptoms: BMI 15.5 - underweight Malnutrition Alert Body Fat Depletion (Non-Severe) Mild Depletion Malnutrition Related to Morbid Obesity Malnutrition related to morbid obesity No Intervention/Recommendation Comments 1. Continue with low sodium diet as ordered. Encouraged oral intake, adding snacks between meals, protein food intake. pt verbalized understand. 2. Monitor PO intake, wt, labs and skin integrity 3. F/U as moderate risk in 3-5 days, 01/01-01/03 Expected Outcomes/Goals Expected Outcomes/Goals 1. PO intake to meet at least 75% of nutritional needs. 2. Wt stability, skin to remain intact, labs to approach WNL.
--- NOTE | 2018-01-02 23:40 | Progress Notes ---
DATE: 01/02/2018 Case was discussed with staff of the patient, reviewed records. The patient is done detoxing. The doctor that saw her today felt that she is stable to be discharged; however, the patient wants to go to detox center. The patient feels that she is really not necessarily ready to go and that she called a few places and they told her she should not be going; however, I talked to the staff and with the [facility], is not willing to take her. Apparently, Dr. Huang went ahead and put a discharge order. She is less anxious. No tremor. Still somewhat depressed. No suicidal ideation, no homicidal ideation, no paranoia. I did advise the staff that maybe we need to get her to [facility], but [facility] is not willing to take her. I asked them to send her to a SNF facility or a safe place to go to; however, I am not sure attending. I do not have any rule over that. So, I do recommend the patient will need to go to a SNF facility or detox facility or [facility]. Hopefully, they will agree to take her. Thank you very much for allowing me to participate in the care of this most interesting lady. JOB# [id number]
== END 2018-01-02 16:33 | disposition home or self-care (01) | DRG 426 ==
LOC: ER 07:33 → ICU 11:08 → MSI 12-30 06:01
PROVIDERS: ADMIT Internal Medicine Infectious Disease; ATTEND Internal Medicine Infectious Disease
DX: E87.1 Hypo-osmolality and hyponatremia (principal); F10.231 Alcohol dependence with withdrawal delirium; E46 Unspecified protein-calorie malnutrition; F33.2 Major depressive disorder, recurrent severe without psychotic features; K52.9 Noninfective gastroenteritis and colitis, unspecified; I10 Essential (primary) hypertension; F41.9 Anxiety disorder, unspecified; R00.0 Tachycardia, unspecified; E86.0 Dehydration; D64.9 Anemia, unspecified; T40.7X5A Adverse effect of cannabis (derivatives), initial encounter; Y92.89 Other specified places as the place of occurrence of the external cause; G62.1 Alcoholic polyneuropathy; F12.10 Cannabis abuse, uncomplicated; Z88.1 Allergy status to other antibiotic agents; Z68.1 Body mass index [BMI] 19.9 or less, adult; Z82.49 Family history of ischemic heart disease and other diseases of the circulatory system; Z90.49 Acquired absence of other specified parts of digestive tract
CPT/HCPCS: 36415-UA; 80048-TC; 80053-TC; 80061-TC; 80307; 80320-TC; 80329-TC; 81003-TC; 81025-TC; 82150-TC; 82550-TC; 83036-90; 83690-TC; 83735-TC; 83880-TC; 83930-90; 84100-TC; 84443-TC; 84484-TC; 84550-TC; 85007-TC; 85025-TC; 85379-TC; 85610-TC; 93005; 94760; 96374; 96375; J2060; J2405; J3411; J3475; J7030; X6598; Z7610